=== PATIENT | female | born 1995 | race Caucasian/White ===

== ENCOUNTER 2016-11-15 18:27 | Emergency (ER) | payer MEDICAID ==
--- NOTE | 2016-11-15 19:30 | EDM.PDOC ---
ED HPI GENERAL MEDICAL PROBLEM - General Chief Complaint: Flank Pain Stated Complaint: PT HAS STOMACH PAINS Time Seen by Provider: 11/15/16 19:45 Source of Information: Reports: Patient History Limitations: Reports: No Limitations - History of Present Illness INITIAL COMMENTS - FREE TEXT/NARRATIVE: HISTORY AND PHYSICAL: History of present illness: [21-year-old female presents emergency department complaining of left upper abdominal pain in left flank/low back pain patient reports normal bowel and bladder habits. Denies fevers chills sweats or shaking chills. Pain is not worse with movement. He has no vaginal discharge or bleeding. No prior history of chronic intra-abdominal pathology. Patient denies cough, chest pain, or shortness of breath.] Review of systems: As per history of present illness and below otherwise all systems reviewed and negative. Past medical history: As per history of present illness and as reviewed below otherwise noncontributory. Surgical history: As per history of present illness and as reviewed below otherwise noncontributory. Social history: No reported history of drug or alcohol abuse. Family history: As per history of present illness and as reviewed below otherwise noncontributory. Physical exam: HEENT: Atraumatic, normocephalic, pupils reactive, negative for conjunctival pallor or scleral icterus, mucous membranes moist, throat clear, neck supple, nontender, trachea midline. Lungs: Clear to auscultation, breath sounds equal bilaterally, chest nontender. Heart: S1S2, regular, negative for clicks, rubs, or JVD. Abdomen: Soft, nondistended, nontender except minimal left upper quadrant tenderness with no guarding or rebound. Negative for masses or hepatosplenomegaly. Minimal left costovertebral tenderness/lumbar soft tissue tenderness Pelvis: Stable nontender. Genitourinary: Deferred. Rectal: Deferred. Extremities: Atraumatic, negative for cords or calf pain. Neurovascular unremarkable. Neuro: Awake, alert, oriented. Cranial nerves grossly unremarkable. Cerebellum unremarkable. Motor and sensory unremarkable throughout. Exam nonfocal. Diagnostics: Laboratory workup pending [CT of the abdomen and pelvis pending] Therapeutics: [] Impression: [] Plan: [Signs and symptoms consistent with possible pyelonephritis versus intra- abdominal pathology. Less likely ureteral colic. Full workup pending. patient stable. Workup Negative patient well-appearing and stable on multiple reevaluation. No further workup or treatment indicated at this time. She and her family agree with outpatient follow-up and strict return precautions given Definitive disposition and diagnosis as appropriate pending reevaluation and review of above. Left Abdomen Pain Score (Numeric/FACES): 6 - Related Data Allergies Allergy/AdvReac Type Severity Reaction Status Date / Time trazodone Allergy Anxiety Verified 03/11/16 13:06 citalopram hydrobromide AdvReac Seizure Verified 03/11/16 13:06 [From Celexa] Home Meds: Home Meds Pnv No.122/Iron/Folic Acid [ Multi Tablet] 1 each PO DAILY 12/27/15 [ History] Gabapentin [Neurontin] 1,200 mg PO DAILY 03/11/16 [History] NIFEdipine [Procardia] 1 cap PO DAILY 03/11/16 [History] Non-Formulary Medication [NF Drug] 1 supp VAG DAILY 03/11/16 [History] Past Medical History - Past Health History Medical/Surgical History: Denies Medical/Surgical History HEENT History: Reports: Otitis Media Cardiovascular History: Reports: None Respiratory History: Reports: None Gastrointestinal History: Reports: None Genitourinary History: Reports: UTI, 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 Endocrine/Metabolic History: Reports: None Hematologic History: Reports: None Immunologic History: Reports: None Oncologic (Cancer) History: Reports: None Dermatologic History: Reports: None - Infectious Disease History Infectious Disease History: Reports: Chicken Pox - Past Surgical History Head Surgeries/Procedures: Reports: None Oncologic Surgical History: Reports: Biopsy of Breast Social & Family History - Family History Family Medical History: Noncontributory Cardiac: Reports: [place] Oncologic: Reports: Breast, Ovarian - Tobacco Use Smoking Status *Q: Current Status Unknown Second Hand Smoke Exposure: No - Alcohol Use Days Per Week of Alcohol Use: 0 - Recreational Drug Use Recreational Drug Use: Yes Drug Use in Last 12 Months: Yes Recreational Drug Type: Reports: Marijuana/Hashish Other Recreational Drug Type: uses for epilepsy Recreational Drug Use Frequency: Weekly ED ROS GENERAL - Review of Systems Review Of Systems: See Below (History of present illness) ED EXAM, GENERAL - Physical Exam Exam: See Below (History of present illness) Course - Vital Signs Last Recorded V/S: Last Vital Signs Temp 36.8 C 11/15/16 18:46 Pulse 95 11/15/16 18:46 Resp 18 11/15/16 18:46 BP 125/73 11/15/16 18:46 Pulse Ox 96 11/15/16 18:46 - Orders/Labs/Meds Orders: Active Orders 24 hr Category Date Time Status Abdomen Pelvis w wo Cont [CT] Stat Exams 11/15/16 20:48 Taken Labs: Laboratory Tests 11/15/16 11/15/16 11/15/16 Range/Units 19:45 19:45 19:45 WBC 8.51 (4.0-11.0) K/uL RBC 4.93 (4.30-5.90) M/uL Hgb 14.1 (12.0-16.0) g/dL Hct 40.9 (36.0-46.0) % MCV 83.0 (80.0-98.0) fL MCH 28.6 (27.0-32.0) pg MCHC 34.5 (31.0-37.0) g/dL RDW Std Deviation 38.8 (28.0-62.0) fl RDW Coeff of Axel 13 (11.0-15.0) % Plt Count 298 (150-400) K/uL MPV 10.10 (7.40-12.00) fL Neut % (Auto) 57.4 (48.0-80.0) % Lymph % (Auto) 29.5 (16.0-40.0) % Coleman % (Auto) 8.1 (0.0-15.0) % Eos % (Auto) 4.5 (0.0-7.0) % Baso % (Auto) 0.5 (0.0-1.5) % Neut # (Auto) 4.9 (1.4-5.7) K/uL Lymph # (Auto) 2.5 H (0.6-2.4) K/uL Coleman # (Auto) 0.7 (0.0-0.8) K/uL Eos # (Auto) 0.4 (0.0-0.7) K/uL Baso # (Auto) 0.0 (0.0-0.1) K/uL Nucleated RBC % 0.0 /100WBC Nucleated RBCs # 0 K/uL Sodium 137 (136-146) mmol/L Potassium 3.9 (3.5-5.1) mmol/L Chloride 105 (98-110) mmol/L Carbon Dioxide 21 (21-31) mmol/L BUN 10 (6.0-23.0) mg/dL Creatinine 0.8 (0.6-1.5) mg/dL Est Cr Clr Drug Dosing 92.46 mL/min Estimated GFR (MDRD) > 60.0 ml/min Glucose 90 (60-110) mg/dL Calcium 9.8 (8.8-10.8) mg/dL Total Bilirubin 0.3 (0.1-1.5) mg/dL AST 55 H (5-40) IU/L ALT 56 H (8-54) IU/L Alkaline Phosphatase 122 (40-150) Total Protein 8.7 H (6.0-8.0) g/dL Albumin 4.8 (3.5-5.0) g/dL Globulin 3.9 H (2.0-3.5) g/dL Albumin/Globulin Ratio 1.2 L (1.3-2.8) Lipase (7-80) U/L Urine Color YELLOW Urine Appearance CLEAR Urine pH 7.0 (5.0-8.0) Ur Specific Mullens 1.015 (1.001-1.035) Urine Protein NEGATIVE (NEGATIVE) mg/dL Urine Glucose (UA) NEGATIVE (NEGATIVE) mg/dL Urine Ketones NEGATIVE (NEGATIVE) mg/dL Urine Occult Blood NEGATIVE (NEGATIVE) Urine Nitrite NEGATIVE (NEGATIVE) Urine Bilirubin NEGATIVE (NEGATIVE) Urine Urobilinogen 0.2 (<2.0) EU/dL Ur Leukocyte Esterase TRACE (NEGATIVE) Urine RBC 0-2 (0-2/HPF) Urine WBC 3-5 (0-5/HPF) Ur Epithelial Cells FEW (NONE-FEW) Amorphous Sediment MODERATE (NEGATIVE) Urine Bacteria FEW (NEGATIVE) Urine HCG, Qual (NEGATIVE) 11/15/16 11/15/16 Range/Units 19:45 19:45 WBC (4.0-11.0) K/uL RBC (4.30-5.90) M/uL Hgb (12.0-16.0) g/dL Hct (36.0-46.0) % MCV (80.0-98.0) fL MCH (27.0-32.0) pg MCHC (31.0-37.0) g/dL RDW Std Deviation (28.0-62.0) fl RDW Coeff of Axel (11.0-15.0) % Plt Count (150-400) K/uL MPV (7.40-12.00) fL Neut % (Auto) (48.0-80.0) % Lymph % (Auto) (16.0-40.0) % Coleman % (Auto) (0.0-15.0) % Eos % (Auto) (0.0-7.0) % Baso % (Auto) (0.0-1.5) % Neut # (Auto) (1.4-5.7) K/uL Lymph # (Auto) (0.6-2.4) K/uL Coleman # (Auto) (0.0-0.8) K/uL Eos # (Auto) (0.0-0.7) K/uL Baso # (Auto) (0.0-0.1) K/uL Nucleated RBC % /100WBC Nucleated RBCs # K/uL Sodium (136-146) mmol/L Potassium (3.5-5.1) mmol/L Chloride (98-110) mmol/L Carbon Dioxide (21-31) mmol/L BUN (6.0-23.0) mg/dL Creatinine (0.6-1.5) mg/dL Est Cr Clr Drug Dosing mL/min Estimated GFR (MDRD) ml/min Glucose (60-110) mg/dL Calcium (8.8-10.8) mg/dL Total Bilirubin (0.1-1.5) mg/dL AST (5-40) IU/L ALT (8-54) IU/L Alkaline Phosphatase (40-150) Total Protein (6.0-8.0) g/dL Albumin (3.5-5.0) g/dL Globulin (2.0-3.5) g/dL Albumin/Globulin Ratio (1.3-2.8) Lipase 22 (7-80) U/L Urine Color Urine Appearance Urine pH (5.0-8.0) Ur Specific Mullens (1.001-1.035) Urine Protein (NEGATIVE) mg/dL Urine Glucose (UA) (NEGATIVE) mg/dL Urine Ketones (NEGATIVE) mg/dL Urine Occult Blood (NEGATIVE) Urine Nitrite (NEGATIVE) Urine Bilirubin (NEGATIVE) Urine Urobilinogen (<2.0) EU/dL Ur Leukocyte Esterase (NEGATIVE) Urine RBC (0-2/HPF) Urine WBC (0-5/HPF) Ur Epithelial Cells (NONE-FEW) Amorphous Sediment (NEGATIVE) Urine Bacteria (NEGATIVE) Urine HCG, Qual NEGATIVE (NEGATIVE) Meds: Medications Discontinued Medications Generic Name Dose Route Start Last Admin Trade Name Freq PRN Reason Stop Dose Admin Hydromorphone HCl 0.5 mg 11/15/16 22:30 11/15/16 22:35 Dilaudid IVPUSH 11/15/16 22:31 0.5 mg NOW STA Administration Sodium Chloride 1,000 mls @ 999 mls/hr 11/15/16 20:00 11/15/16 20:06 Normal Saline IV 11/15/16 21:00 999 mls/hr .BOLUS ONE Administration Iopamidol 100 ml 11/15/16 20:58 Isovue Multipack-370 (76%) IVPUSH 11/15/16 20:59 ONETIME STA Ketorolac Tromethamine 30 mg 11/15/16 20:00 11/15/16 20:06 Toradol IVPUSH 11/15/16 20:01 30 mg ONETIME ONE Administration Ondansetron HCl 4 mg 11/15/16 19:59 11/15/16 20:05 Zofran Odt PO 11/15/16 20:00 4 mg ONETIME ONE Administration Departure - Departure Time of Disposition: 23:21 Disposition: Home, Self-Care 01 Condition: Good Clinical Impression: Abdominal pain, Back pain - Discharge Information Referrals: PCP,None [Primary Care Provider] - Forms: ED Department Discharge Additional Instructions: Is not clear what the cause of your left upper abdominal pain and left back pain is today. Your CAT scan showed a 3 mm stone in your left kidney, but a stone in your kidney would not be causing pain. You have no evidence of urinary infection or evidence of passing a kidney stone which would be potentially very painful. Labs and CAT scan were otherwise unremarkable. Take 100 mg of ibuprofen every 6 hours as needed for pain and follow-up with your tomorrow. Return immediately for new severe or worsening symptoms - My Orders Last 24 Hours: My Active Orders 11/15/16 20:48 Abdomen Pelvis w wo Cont [CT] Stat - Assessment/Plan Last 24 Hours: My Active Orders 11/15/16 20:48 Abdomen Pelvis w wo Cont [CT] Stat
[2016-11-15] MEDS ORDERED: Ondansetron 4 MG Tab.DIS PO ONE (19:59)
[2016-11-15] MEDS ORDERED: Ketorolac 30 MG/ML SDV IVPUSH ONE (20:00)
[2016-11-15] MEDS ORDERED: Sodium Chloride 0.9% 1,000 ML IV ONE (20:00)
[2016-11-15 20:15] LABS: CHLORIDE,CL 105 mmol/L (98-110); SODIUM,NA 137 mmol/L (136-146)
[2016-11-15] MEDS ORDERED: Iopamidol 755 MG/ML 500 ML Multipack Bottle IVPUSH STA (20:58)
[2016-11-15] MEDS ORDERED: HYDROmorphone 2 MG/ML Syringe IVPUSH STA (22:30)
[2016-11-15 23:42] VITALS: BP 102/60
--- NOTE | 2016-11-16 10:09 | CT ---
EXAM DATE: 11/15/16 PATIENT'S AGE: 21 Patient: HUI AUGUST Facility: [place], [place] Site . Site : 1995 Study: CT Abdomen/Pelvis [id number]/14/2017 10:03:36 PM Ordering Physician: Ousmane Reich Final Report: INDICATION: Abdominal pain TECHNIQUE: CT abdomen and pelvis acquired with and without i.v. 100 mL Isovue 370. Coronal and sagittal reformats were obtained. COMPARISON: 01/07/2015. FINDINGS: Lower chest: Unremarkable. Liver: Unremarkable. Spleen: Unremarkable. Pancreas: Unremarkable. Gallbladder and bile ducts: Unremarkable. Kidneys: There is a 3 mm stone in the lower pole of the left kidney. Adrenal glands: Unremarkable. GI tract: Eventration of the midline abdominal wall is present with diastases of the rectus abdominus muscles at the level of the umbilicus. The appendix cannot be identified but there are no inflammatory changes noted in the right lower quadrant. Vascular: Unremarkable. Lymph nodes: Unremarkable. Miscellaneous: Unremarkable. No pneumoperitoneum is seen. Trace pelvic ascites is noted. Pelvic Organs: There is a 2.4 cm cyst or follicle present in the left ovary. Bones: Unremarkable for age. IMPRESSION: 1. There is a 3 mm nonobstructing stone in the lower pole of the left kidney. Dictated by Jw Self MD @ 11/15/2016 10:24:43 PM Dictated by: Jw Self MD @ 11/15/2016 22:25:02 (Electronic Signature) Report Signed by Proxy. NBA
== END 2016-11-15 23:39 | disposition home or self-care (01) ==
LOC: MW.ED 18:27
DX: R10.12 Left upper quadrant pain (principal); M54.9 Dorsalgia, unspecified; G43.909 Migraine, unspecified, not intractable, without status migrainosus; F41.9 Anxiety disorder, unspecified; F32.9 Major depressive disorder, single episode, unspecified; Z79.899 Other long term (current) drug therapy; Z88.8 Allergy status to other drugs, medicaments and biological substances; Z87.440 Personal history of urinary (tract) infections
CPT/HCPCS: 74178; 80053; 81001; 81025; 83690; 85025; 96361; 96374; 96375; 99284; A9270; J1170; J1885; J7040

== ENCOUNTER 2017-02-10 11:05 | Emergency (ER) | payer MEDICAID ==
[2017-02-10] MEDS ORDERED: Ondansetron 4 MG Tab.DIS PO ONE (11:22)
--- NOTE | 2017-02-10 11:35 | EDM.PDOC ---
ED HPI GENERAL MEDICAL PROBLEM - General Chief Complaint: Upper Extremity Injury/Pain Stated Complaint: INJURED RT SHOULDER Time Seen by Provider: 02/10/17 11:15 Source of Information: Reports: Patient History Limitations: Reports: No Limitations - History of Present Illness INITIAL COMMENTS - FREE TEXT/NARRATIVE: History of present illness: [21-year-old female coming in complaining of mechanical fall with subsequent landing on right shoulder yesterday afternoon. Patient indicates that she feels that her shoulder is dislocated and is painful to move.] Review of systems: As per history of present illness and below otherwise all systems reviewed and negative. Past medical history: As per history of present illness and as reviewed below otherwise noncontributory. Surgical history: As per history of present illness and as reviewed below otherwise noncontributory. Social history: No reported history of drug or alcohol abuse. Family history: As per history of present illness and as reviewed below otherwise noncontributory. Physical exam: HEENT: Atraumatic, normocephalic, pupils reactive, negative for conjunctival pallor or scleral icterus, mucous membranes moist, throat clear, neck supple, nontender, trachea midline. Lungs: Clear to auscultation, breath sounds equal bilaterally, chest nontender. Heart: S1S2, regular, negative for clicks, rubs, or JVD. Abdomen: Soft, nondistended, nontender. Negative for masses or hepatosplenomegaly. Negative for costovertebral tenderness. Pelvis: Stable nontender. Genitourinary: Deferred. Rectal: Deferred. Extremities: Right ex upper extremity with the significant amount of guarding with no obvious deformity at the clavicle, negative for cords or calf pain. Neurovascular unremarkable. Neuro: Awake, alert, oriented. Cranial nerves II through XII unremarkable. Cerebellum unremarkable. Motor and sensory unremarkable throughout. Exam nonfocal. Diagnostics: [X-ray of right shoulder] Therapeutics: [Zofran] Impression: [#1 contusion to the right shoulder] Plan: [[id number] NSAIDs such as ibuprofen] Definitive disposition and diagnosis as appropriate pending reevaluation and review of above. Right Shoulder Pain Score (Numeric/FACES): 5 - Related Data Allergies Allergy/AdvReac Type Severity Reaction Status Date / Time trazodone Allergy Anxiety Verified 02/10/17 11:12 citalopram hydrobromide AdvReac Seizure Verified 02/10/17 11:12 [From Celexa] Home Meds: Home Meds Pnv No.122/Iron/Folic Acid [ Multi Tablet] 1 each PO DAILY 12/27/15 [ History] Gabapentin [Neurontin] 1,200 mg PO DAILY 03/11/16 [History] Past Medical History - Past Health History Medical/Surgical History: Denies Medical/Surgical History HEENT History: Reports: Otitis Media Cardiovascular History: Reports: None Respiratory History: Reports: None Gastrointestinal History: Reports: None Genitourinary History: Reports: UTI, Recurrent [employer]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 Endocrine/Metabolic History: Reports: None Hematologic History: Reports: None Immunologic History: Reports: None Oncologic (Cancer) History: Reports: None Dermatologic History: Reports: None - Infectious Disease History Infectious Disease History: Reports: Chicken Pox - Past Surgical History Head Surgeries/Procedures: Reports: None HEENT Surgical History: Reports: None Neurological Surgical History: Reports: None Musculoskeletal Surgical History: Reports: None Oncologic Surgical History: Reports: Biopsy of Breast Social & Family History - Family History Family Medical History: Noncontributory Cardiac: Reports: [place] Oncologic: Reports: Breast, Ovarian - Tobacco Use Smoking Status *Q: Never Smoker Second Hand Smoke Exposure: No - Caffeine Use Caffeine Use: Reports: Coffee - Alcohol Use Days Per Week of Alcohol Use: 0 - Recreational Drug Use Recreational Drug Use: Yes Drug Use in Last 12 Months: Yes Recreational Drug Type: Reports: Marijuana/Hashish Other Recreational Drug Type: uses for epilepsy Recreational Drug Use Frequency: Weekly Review of Systems - Review of Systems Review Of Systems: See Below (See history of present illness) ED EXAM, GENERAL - Physical Exam Exam: See Below (CHPI) Course - Vital Signs Last Recorded V/S: Last Vital Signs Temp 37.1 C 02/10/17 11:15 Pulse 100 02/10/17 11:15 Resp 16 02/10/17 11:15 BP 131/87 02/10/17 11:15 Pulse Ox 97 02/10/17 11:15 - Orders/Labs/Meds Orders: Active Orders 24 hr Category Date Time Status Shoulder Comp Rt [CR] Stat Exams 02/10/17 11:22 Taken Meds: Medications Discontinued Medications Generic Name Dose Route Start Last Admin Trade Name Braeden PRN Reason Stop Dose Admin Ondansetron HCl 4 mg 02/10/17 11:22 02/10/17 12:00 Zofran Odt PO 02/10/17 11:23 4 mg ONETIME ONE Administration Departure - Departure Time of Disposition: 12:10 Disposition: Home, Self-Care 01 Condition: Good ( ) Clinical Impression: Right shoulder pain - Discharge Information Instructions: Shoulder Pain, [id number], How to Use a Sling, [id number] Referrals: Julio Eden DO [Primary Care Provider] - Forms: ED Department Discharge Additional Instructions: The following information is given to patients seen in the emergency department who are being discharged to home. This information is to outline your options for follow-up care. We provide all patients seen in our emergency department with a follow-up referral. The need for follow-up, as well as the timing and circumstances, are variable depending upon the specifics of your emergency department visit. If you don't have a primary care physician on staff, we will provide you with a referral. We always advise you to contact your personal physician following an emergency department visit to inform them of the circumstance of the visit and for follow-up with them and/or the need for any referrals to a consulting specialist. The emergency department will also refer you to a specialist when appropriate. This referral assures that you have the opportunity for follow-up care with a specialist. All of these measure are taken in an effort to provide you with optimal care, which includes your follow-up. Under all circumstances we always encourage you to contact your private physician who remains a resource for coordinating your care. When calling for follow-up care, please make the office aware that this follow-up is from your recent emergency room visit. If for any reason you are refused follow-up, please contact the [facility] Emergency Department at and asked to speak to the emergency department charge nurse. Take ibuprofen 800 mg every 8 hours as needed for pain You may alternate ice and heat for no more than 20 minutes at a time Follow-up with your PCP 1-2 days Return to ED as needed as discussed
[2017-02-10 12:35] VITALS: BP 111/70
--- NOTE | 2017-02-12 13:36 | CR ---
EXAM DATE: 02/10/17 PATIENT'S AGE: 21 Patient: HUI AUGUST Facility: [place], [place] Site . Site : 1995 Study: XRay Shoulder Right [id number]/9/2017 11:45:15 AM Ordering Physician: Doctor Alamo Final Report: INDICATION: pain TECHNIQUE: Right shoulder 3 views COMPARISON: None FINDINGS: Bones: Alignment is normal. No fractures or bone lesions. Joint spaces: Unremarkable. Soft tissues: Unremarkable. IMPRESSION: Unremarkable right shoulder. Dictated by: Ren Faria MD @ 02/10/2017 12:04:46 (Electronic Signature) Report Signed by Proxy. NBA
== END 2017-02-10 12:30 | disposition home or self-care (01) ==
LOC: MW.ED 11:05
DX: S40.011A Contusion of right shoulder, initial encounter (principal); Z88.8 Allergy status to other drugs, medicaments and biological substances; Z87.440 Personal history of urinary (tract) infections; W19.XXXA Unspecified fall, initial encounter
CPT/HCPCS: 73030; 99283; A9270

== ENCOUNTER 2017-03-23 23:15 | Emergency (ER) | payer MEDICAID ==
[2017-03-23] MEDS ORDERED: Ondansetron 4 MG/2 ML SDV IVPUSH ONE (23:35)
[2017-03-23] MEDS ORDERED: Sodium Chloride 0.9% 1,000 ML IV ONE (23:35)
[2017-03-23] MEDS ORDERED: Ketorolac 30 MG/ML SDV IVPUSH ONE (23:35)
--- NOTE | 2017-03-23 23:37 | EDM.PDOC ---
ED HPI GENERAL MEDICAL PROBLEM - General Chief Complaint: Headache Stated Complaint: SEIZURE Time Seen by Provider: 03/23/17 23:36 Source of Information: Reports: Patient - History of Present Illness INITIAL COMMENTS - FREE TEXT/NARRATIVE: HISTORY AND PHYSICAL: History of present illness: [Patient with seizure disorder presents with seizure she is on gabapentin for this generally controlled she has not had a seizure in quite some time per patient. Post seizure she is alert however complains of headache 7 out of 10 left unilateral some nausea light sensitivity she does have history of migraine no fever vomiting chills sweats no chest pain shortness of breath dizziness or palpitation ] Review of systems: As per history of present illness and below otherwise all systems reviewed and negative. Past medical history: As per history of present illness and as reviewed below otherwise noncontributory. Surgical history: As per history of present illness and as reviewed below otherwise noncontributory. Social history: No reported history of drug or alcohol abuse. Family history: As per history of present illness and as reviewed below otherwise noncontributory. Physical exam: HEENT: Atraumatic, normocephalic, pupils reactive, negative for conjunctival pallor or scleral icterus, mucous membranes moist, throat clear, neck supple, nontender, trachea midline. Lungs: Clear to auscultation, breath sounds equal bilaterally, chest nontender. Heart: S1S2, regular, negative for clicks, rubs, or JVD. Abdomen: Soft, nondistended, nontender. Negative for masses or hepatosplenomegaly. Negative for costovertebral tenderness. Pelvis: Stable nontender. Genitourinary: Deferred. Rectal: Deferred. Extremities: Atraumatic, negative for cords or calf pain. Neurovascular unremarkable. Neuro: Awake, alert, oriented. Cranial nerves II through XII unremarkable. Cerebellum unremarkable. Motor and sensory unremarkable throughout. Exam nonfocal. Diagnostics: [Lab as below CT of head on file from one year prior ] Therapeutics: [1 L normal saline bolus Zofran 8 mg IV Toradol 30 mg IV ativan 1 mg iv ] Impression: [Headache-reolved Seizure disorder] Definitive disposition and diagnosis as appropriate pending reevaluation and review of above. Headache Pain Score (Numeric/FACES): 8 - Related Data Allergies Allergy/AdvReac Type Severity Reaction Status Date / Time trazodone Allergy Anxiety Verified 03/23/17 23:18 citalopram hydrobromide AdvReac Seizure Verified 03/23/17 23:18 [From Celexa] Home Meds: Home Meds Pnv No.122/Iron/Folic Acid [ Multi Tablet] 1 each PO DAILY 12/27/15 [ History] Gabapentin [Neurontin] 1,200 mg PO DAILY 03/11/16 [History] Past Medical History - Past Health History Medical/Surgical History: Denies Medical/Surgical History HEENT History: Reports: Otitis Media Cardiovascular History: Reports: None Respiratory History: Reports: None Gastrointestinal History: Reports: None Genitourinary History: Reports: UTI, 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 Endocrine/Metabolic History: Reports: None Hematologic History: Reports: None Immunologic History: Reports: None Oncologic (Cancer) History: Reports: None Dermatologic History: Reports: None - Infectious Disease History Infectious Disease History: Reports: Chicken Pox - Past Surgical History Head Surgeries/Procedures: Reports: None HEENT Surgical History: Reports: None Neurological Surgical History: Reports: None Musculoskeletal Surgical History: Reports: None Oncologic Surgical History: Reports: Biopsy of Breast Social & Family History - Family History Family Medical History: Noncontributory Cardiac: Reports: [place] Oncologic: Reports: Breast, Ovarian - Tobacco Use Smoking Status *Q: Never Smoker Second Hand Smoke Exposure: No - Caffeine Use Caffeine Use: Reports: Coffee - Alcohol Use Days Per Week of Alcohol Use: 0 - Recreational Drug Use Recreational Drug Use: Yes Drug Use in Last 12 Months: Yes Recreational Drug Type: Reports: Marijuana/Hashish Other Recreational Drug Type: uses for epilepsy Recreational Drug Use Frequency: Weekly ED ROS GENERAL - Review of Systems Review Of Systems: ROS reveals no pertinent complaints other than HPI. ED EXAM, GENERAL - Physical Exam Exam: See Below Course - Vital Signs Last Recorded V/S: Last Vital Signs Temp 36.6 C 03/23/17 23:18 Pulse 99 03/23/17 23:18 Resp 20 03/23/17 23:18 BP 101/57 L 03/24/17 01:03 Pulse Ox 97 03/23/17 23:18 - Orders/Labs/Meds Orders: Active Orders 24 hr Category Date Time Status HCG QUALITATIVE,URINE [URCHEM] Stat Lab 03/23/17 23:35 Uncollected UA W/MICROSCOPIC [URIN] Stat Lab 03/23/17 23:35 Uncollected Labs: Laboratory Tests 03/23/17 03/23/17 Range/Units 23:42 23:42 WBC 6.05 (4.0-11.0) K/uL RBC 4.48 (4.30-5.90) M/uL Hgb 12.8 (12.0-16.0) g/dL Hct 36.8 (36.0-46.0) % MCV 82.1 (80.0-98.0) fL MCH 28.6 (27.0-32.0) pg MCHC 34.8 (31.0-37.0) g/dL RDW Std Deviation 38.2 (28.0-62.0) fl RDW Coeff of Axel 13 (11.0-15.0) % Plt Count 266 (150-400) K/uL MPV 10.80 (7.40-12.00) fL Neut % (Auto) 50.2 (48.0-80.0) % Lymph % (Auto) 33.7 (16.0-40.0) % [place] % (Auto) 11.1 (0.0-15.0) % Eos % (Auto) 4.5 (0.0-7.0) % Baso % (Auto) 0.5 (0.0-1.5) % Neut # (Auto) 3.0 (1.4-5.7) K/uL Lymph # (Auto) 2.0 (0.6-2.4) K/uL [place] # (Auto) 0.7 (0.0-0.8) K/uL Eos # (Auto) 0.3 (0.0-0.7) K/uL Baso # (Auto) 0.0 (0.0-0.1) K/uL Nucleated RBC % 0.0 /100WBC Nucleated RBCs # 0 K/uL Sodium 141 (136-146) mmol/L Potassium 3.3 L (3.5-5.1) mmol/L Chloride 109 (98-110) mmol/L Carbon Dioxide 21 (21-31) mmol/L BUN 8 (6.0-23.0) mg/dL Creatinine 0.8 (0.6-1.5) mg/dL Est Cr Clr Drug Dosing TNP Estimated GFR (MDRD) > 60.0 ml/min Glucose 97 (60-110) mg/dL Calcium 9.6 (8.8-10.8) mg/dL Total Bilirubin 0.4 (0.1-1.5) mg/dL AST 18 (5-40) IU/L ALT 13 (8-54) IU/L Alkaline Phosphatase 91 (40-150) Total Protein 8.0 (6.0-8.0) g/dL Albumin 4.3 (3.5-5.0) g/dL Globulin 3.7 H (2.0-3.5) g/dL Albumin/Globulin Ratio 1.2 L (1.3-2.8) Meds: Medications Discontinued Medications Generic Name Dose Route Start Last Admin Trade Name Freq PRN Reason Stop Dose Admin Sodium Chloride 1,000 mls @ 999 mls/hr 03/23/17 23:35 03/23/17 23:56 Normal Saline IV 03/24/17 00:35 999 mls/hr STAT ONE Administration Ketorolac Tromethamine 30 mg 03/23/17 23:35 03/23/17 23:55 Toradol IVPUSH 03/23/17 23:36 30 mg ONETIME ONE Administration Lorazepam 1 mg 03/23/17 23:59 03/24/17 00:13 Ativan IVPUSH 03/24/17 00:00 1 mg ONETIME ONE Administration Ondansetron HCl 8 mg 03/23/17 23:35 03/23/17 23:56 Zofran IVPUSH 03/23/17 23:36 8 mg ONETIME ONE Administration Potassium Chloride 20 meq 03/24/17 00:56 Klor-Con M20 PO 03/24/17 00:57 ONETIME ONE Departure - Departure Time of Disposition: 01:04 Disposition: Home, Self-Care 01 Condition: Good Clinical Impression: Seizure disorder Headache Qualifiers: Headache chronicity pattern: acute headache Intractability: not intractable - Discharge Information Referrals: PCP,None [Primary Care Provider] - Forms: ED Department Discharge Additional Instructions: Continue medication as prescribed Return if symptoms persist or worsen Follow-up with primary care in 2 weeks sooner as needed The following information is given to patients seen in the emergency department who are being discharged to home. This information is to outline your options for follow-up care. We provide all patients seen in our emergency department with a follow-up referral. The need for follow-up, as well as the timing and circumstances, are variable depending upon the specifics of your emergency department visit. If you don't have a primary care physician on staff, we will provide you with a referral. We always advise you to contact your personal physician following an emergency department visit to inform them of the circumstance of the visit and for follow-up with them and/or the need for any referrals to a consulting specialist. The emergency department will also refer you to a specialist when appropriate. This referral assures that you have the opportunity for follow-up care with a specialist. All of these measure are taken in an effort to provide you with optimal care, which includes your follow-up. Under all circumstances we always encourage you to contact your private physician who remains a resource for coordinating your care. When calling for follow-up care, please make the office aware that this follow-up is from your recent emergency room visit. If for any reason you are refused follow-up, please contact the [facility] emergency department at and asked to speak to the emergency department charge nurse. - My Orders Last 24 Hours: My Active Orders 03/23/17 23:35 HCG QUALITATIVE,URINE [URCHEM] Stat UA W/MICROSCOPIC [URIN] Stat - Assessment/Plan Last 24 Hours: My Active Orders 03/23/17 23:35 HCG QUALITATIVE,URINE [URCHEM] Stat UA W/MICROSCOPIC [URIN] Stat
[2017-03-23] MEDS ORDERED: LORazepam 2 MG/ML MDV IVPUSH ONE (23:59)
[2017-03-24 00:35] LABS: CHLORIDE,CL 109 mmol/L (98-110); SODIUM,NA 141 mmol/L (136-146)
[2017-03-24] MEDS ORDERED: Potassium Chloride 20 MEQ Tab.ER PO ONE (00:56)
[2017-03-24 01:12] VITALS: BP 105/60
== END 2017-03-24 01:24 | disposition home or self-care (01) ==
LOC: MW.ED 23:15
DX: G40.909 Epilepsy, unspecified, not intractable, without status epilepticus (principal); R51 Headache; Z79.899 Other long term (current) drug therapy; Z88.8 Allergy status to other drugs, medicaments and biological substances; Z88.1 Allergy status to other antibiotic agents
CPT/HCPCS: 36415; 80053; 85025; 96361; 96374; 96375; 99284; A9270; J1885; J2060; J2405; J7040

== ENCOUNTER 2017-07-14 09:25 | Emergency (ER) | payer MEDICAID ==
[2017-07-14] MEDS ORDERED: LORazepam 0.5 MG Tab PO ONE (09:42)
--- NOTE | 2017-07-14 09:47 | EDM.PDOCBH ---
ED HPI GENERAL MEDICAL PROBLEM - General Chief Complaint: Behavioral/Psych Stated Complaint: AMB Time Seen by Provider: 07/14/17 09:33 Source of Information: Reports: Patient History Limitations: Reports: No Limitations - History of Present Illness INITIAL COMMENTS - FREE TEXT/NARRATIVE: History of present illness: []Patient arrives by ambulance having an anxiety attack, patient also suffers from chronic depression. Patient has had a very stressful week she has a 3-year- old and 1-year-old twins one having a arachnoid cyst and was treated in [place] this past week. She was not given any information about his treatment or prognosis and is very confused and scared. Patient also was engaged and her fianc broke off the engagement this past week. Patient denies being suicidal with an active plan, however she admits to having suicidal thoughts since she was 12 that come and go. Patient does not want to she wants to live for and indications but just feels very anxious and would like treatment. She has been treated in the past with Klonopin that worked but has been taken off of it. She has been to [facility] psychiatric service twice and states that they did not help her. He is followed by [facility] and has tried many antidepressants but all make her more suicidal. I did speak with Chacha and who is the pharmaceutical worker and she didn't relay to me that in the past 2 weeks He has vocalized the possibility of harming the babies or herself. Review of systems: As per history of present illness and below otherwise all systems reviewed and negative. Past medical history: As per history of present illness and as reviewed below otherwise noncontributory. Surgical history: As per history of present illness and as reviewed below otherwise noncontributory. Social history: No reported history of drug or alcohol abuse. Family history: As per history of present illness and as reviewed below otherwise noncontributory. Physical exam: General: Well developed, well nourished in NAD HEENT: Atraumatic, normocephalic, pupils reactive, negative for conjunctival pallor or scleral icterus, mucous membranes moist, throat clear, neck supple, nontender, trachea midline. Lungs: Clear to auscultation, breath sounds equal bilaterally, chest nontender. Heart: S1S2, regular, negative for clicks, rubs, or JVD. Abdomen: Soft, nondistended, nontender. Negative for masses or hepatosplenomegaly. Negative for costovertebral tenderness. Pelvis: Stable nontender. Genitourinary: Deferred. Rectal: Deferred. Extremities: Atraumatic, negative for cords or calf pain. Neurovascular unremarkable. Neuro: Awake, alert, oriented. Cranial nerves II through XII unremarkable. Cerebellum unremarkable. Motor and sensory unremarkable throughout. Exam nonfocal. Diagnostics: []Mental health screening labs done all normal Therapeutics: [] Impression: []Anxiety, depression with suicidal and homicidal ideation Plan: []Dr. Douglas Danielson [facility] psychiatric unit is called and accepts patient for transfer. Definitive disposition and diagnosis as appropriate pending reevaluation and review of above. chest Pain Score (Numeric/FACES): 4 - Related Data Allergies Allergy/AdvReac Type Severity Reaction Status Date / Time trazodone Allergy Anxiety Verified 07/14/17 09:28 citalopram hydrobromide AdvReac Seizure Verified 07/14/17 09:28 [From Celexa] Home Meds: Home Meds Gabapentin [Neurontin] 600 mg PO DAILY 03/11/16 [History] Past Medical History - Past Health History Medical/Surgical History: Denies Medical/Surgical History HEENT History: Reports: Otitis Media Cardiovascular History: Reports: None Respiratory History: Reports: None Gastrointestinal History: Reports: None Genitourinary History: Reports: UTI, 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 Endocrine/Metabolic History: Reports: None Hematologic History: Reports: None Immunologic History: Reports: None Oncologic (Cancer) History: Reports: None Dermatologic History: Reports: None - Infectious Disease History Infectious Disease History: Reports: Chicken Pox - Past Surgical History Head Surgeries/Procedures: Reports: None HEENT Surgical History: Reports: None Neurological Surgical History: Reports: None Musculoskeletal Surgical History: Reports: None Oncologic Surgical History: Reports: Biopsy of Breast Social & Family History - Family History Family Medical History: Noncontributory Cardiac: Reports: [place] Oncologic: Reports: Breast, Ovarian - Tobacco Use Smoking Status *Q: Never Smoker Second Hand Smoke Exposure: No - Caffeine Use Caffeine Use: Reports: Coffee - Alcohol Use Days Per Week of Alcohol Use: 0 - Recreational Drug Use Recreational Drug Use: Yes Drug Use in Last 12 Months: Yes Recreational Drug Type: Reports: Marijuana/Hashish Other Recreational Drug Type: uses for epilepsy Recreational Drug Use Frequency: Weekly ED ROS GENERAL - Review of Systems Review Of Systems: See Below (See history of present illness) ED EXAM, BEHAVIORAL HEALTH - Physical Exam Exam: See Below (See history of present illness) COURSE, BEHAVIORAL HEALTH COMP - Course Vital Signs: Last Vital Signs Temp 98.4 F 07/14/17 09:27 Pulse 104 H 07/14/17 09:27 Resp 18 07/14/17 09:27 BP 127/81 07/14/17 09:27 Pulse Ox 98 07/14/17 09:27 Orders, Labs, Meds: Active Orders 24 hr Category Date Time Status EKG Documentation Completion [RC] STAT Care 07/14/17 09:51 Active FREE T3 [REF] Stat Lab 07/14/17 09:57 Received Laboratory Tests 07/14/17 07/14/17 07/14/17 Range/Units 09:57 09:57 12:12 WBC 6.58 (4.0-11.0) K/uL RBC 4.39 (4.30-5.90) M/uL Hgb 12.5 (12.0-16.0) g/dL Hct 35.9 L (36.0-46.0) % MCV 81.8 (80.0-98.0) fL MCH 28.5 (27.0-32.0) pg MCHC 34.8 (31.0-37.0) g/dL RDW Std Deviation 39.7 (28.0-62.0) fl RDW Coeff of Axel 13 (11.0-15.0) % Plt Count 252 (150-400) K/uL MPV 11.40 (7.40-12.00) fL Neut % (Auto) 75.8 (48.0-80.0) % Lymph % (Auto) 14.6 L (16.0-40.0) % [place] % (Auto) 7.6 (0.0-15.0) % Eos % (Auto) 1.5 (0.0-7.0) % Baso % (Auto) 0.5 (0.0-1.5) % Neut # (Auto) 5.0 (1.4-5.7) K/uL Lymph # (Auto) 1.0 (0.6-2.4) K/uL [place] # (Auto) 0.5 (0.0-0.8) K/uL Eos # (Auto) 0.1 (0.0-0.7) K/uL Baso # (Auto) 0.0 (0.0-0.1) K/uL Nucleated RBC % 0.0 /100WBC Nucleated RBCs # 0 K/uL Sodium 140 (136-146) mmol/L Potassium 3.3 L (3.5-5.1) mmol/L Chloride 107 (98-110) mmol/L Carbon Dioxide 24 (21-31) mmol/L BUN 7 (6.0-23.0) mg/dL Creatinine 0.7 (0.6-1.5) mg/dL Est Cr Clr Drug Dosing TNP Estimated GFR (MDRD) > 60.0 ml/min Glucose 102 (60-110) mg/dL Calcium 9.7 (8.8-10.8) mg/dL Magnesium 1.9 (1.5-2.3) mEq/L Total Bilirubin 0.5 (0.1-1.5) mg/dL AST 18 (5-40) IU/L ALT 15 (8-54) IU/L Alkaline Phosphatase 78 (40-150) Total Protein 7.9 (6.0-8.0) g/dL Albumin 4.6 (3.5-5.0) g/dL Globulin 3.3 (2.0-3.5) g/dL Albumin/Globulin Ratio 1.4 (1.3-2.8) TSH 3rd Generation 0.65 (0.47-5.0) uIU/mL Urine Color Urine Appearance Urine pH (5.0-8.0) Ur Specific [place] (1.001-1.035) Urine Protein (NEGATIVE) mg/dL Urine Glucose (UA) (NEGATIVE) mg/dL Urine Ketones (NEGATIVE) mg/dL Urine Occult Blood (NEGATIVE) Urine Nitrite (NEGATIVE) Urine Bilirubin (NEGATIVE) Urine Ictotest Urine Urobilinogen (<2.0) EU/dL Ur Leukocyte Esterase (NEGATIVE) Urine RBC (0-2/HPF) Urine WBC (0-5/HPF) Ur Epithelial Cells (NONE-FEW) Urine Bacteria (NEGATIVE) Urine Mucus (NONE-MOD) Urine HCG, Qual NEGATIVE (NEGATIVE) Salicylates < 5.0 (0-20) mg/dL Urine Opiates Screen (NEGATIVE) Ur Oxycodone Screen (NEGATIVE) Urine Methadone Screen (NEGATIVE) Acetaminophen < 3.0 ug/mL Ur Barbiturates Screen (NEGATIVE) Ur Phencyclidine Scrn (NEGATIVE) Ur Amphetamine Screen (NEGATIVE) U Methamphetamines Scrn (NEGATIVE) U Benzodiazepines Scrn (NEGATIVE) U Cocaine Metab Screen (NEGATIVE) U Marijuana (THC) Screen (NEGATIVE) Ethyl Alcohol < 10.0 mg/dL 07/14/17 07/14/17 Range/Units 12:12 12:12 WBC (4.0-11.0) K/uL RBC (4.30-5.90) M/uL Hgb (12.0-16.0) g/dL Hct (36.0-46.0) % MCV (80.0-98.0) fL MCH (27.0-32.0) pg MCHC (31.0-37.0) g/dL RDW Std Deviation (28.0-62.0) fl RDW Coeff of Axel (11.0-15.0) % Plt Count (150-400) K/uL MPV (7.40-12.00) fL Neut % (Auto) (48.0-80.0) % Lymph % (Auto) (16.0-40.0) % [place] % (Auto) (0.0-15.0) % Eos % (Auto) (0.0-7.0) % Baso % (Auto) (0.0-1.5) % Neut # (Auto) (1.4-5.7) K/uL Lymph # (Auto) (0.6-2.4) K/uL [place] # (Auto) (0.0-0.8) K/uL Eos # (Auto) (0.0-0.7) K/uL Baso # (Auto) (0.0-0.1) K/uL Nucleated RBC % /100WBC Nucleated RBCs # K/uL Sodium (136-146) mmol/L Potassium (3.5-5.1) mmol/L Chloride (98-110) mmol/L Carbon Dioxide (21-31) mmol/L BUN (6.0-23.0) mg/dL Creatinine (0.6-1.5) mg/dL Est Cr Clr Drug Dosing Estimated GFR (MDRD) ml/min Glucose (60-110) mg/dL Calcium (8.8-10.8) mg/dL Magnesium (1.5-2.3) mEq/L Total Bilirubin (0.1-1.5) mg/dL AST (5-40) IU/L ALT (8-54) IU/L Alkaline Phosphatase (40-150) Total Protein (6.0-8.0) g/dL Albumin (3.5-5.0) g/dL Globulin (2.0-3.5) g/dL Albumin/Globulin Ratio (1.3-2.8) TSH 3rd Generation (0.47-5.0) uIU/mL Urine Color YELLOW Urine Appearance CLEAR Urine pH 7.0 (5.0-8.0) Ur Specific [place] 1.020 (1.001-1.035) Urine Protein TRACE (NEGATIVE) mg/dL Urine Glucose (UA) NEGATIVE (NEGATIVE) mg/dL Urine Ketones 15 H (NEGATIVE) mg/dL Urine Occult Blood LARGE H (NEGATIVE) Urine Nitrite NEGATIVE (NEGATIVE) Urine Bilirubin SMALL H (NEGATIVE) Urine Ictotest NEGATIVE Urine Urobilinogen 0.2 (<2.0) EU/dL Ur Leukocyte Esterase NEGATIVE (NEGATIVE) Urine RBC 35-40 (0-2/HPF) Urine WBC 3-6 (0-5/HPF) Ur Epithelial Cells MODERATE (NONE-FEW) Urine Bacteria FEW (NEGATIVE) Urine Mucus MANY (NONE-MOD) Urine HCG, Qual (NEGATIVE) Salicylates (0-20) mg/dL Urine Opiates Screen NEGATIVE (NEGATIVE) Ur Oxycodone Screen NEGATIVE (NEGATIVE) Urine Methadone Screen NEGATIVE (NEGATIVE) Acetaminophen ug/mL Ur Barbiturates Screen NEGATIVE (NEGATIVE) Ur Phencyclidine Scrn NEGATIVE (NEGATIVE) Ur Amphetamine Screen NEGATIVE (NEGATIVE) U Methamphetamines Scrn NEGATIVE (NEGATIVE) U Benzodiazepines Scrn NEGATIVE (NEGATIVE) U Cocaine Metab Screen NEGATIVE (NEGATIVE) U Marijuana (THC) Screen NEGATIVE (NEGATIVE) Ethyl Alcohol mg/dL Medications Discontinued Medications Generic Name Dose Route Start Last Admin Trade Name [place] PRN Reason Stop Dose Admin Lorazepam 0.5 mg 07/14/17 09:42 07/14/17 09:50 Ativan PO 07/14/17 09:43 0.5 mg ONETIME ONE Administration Departure - Departure Time of Disposition: 15:19 Disposition: DC/Tfer to Psych Hosp/Unit 65 Condition: Good Clinical Impression: Suicidal ideations, Homicidal ideations, Anxiety and depression - Discharge Information Forms: ED Department Discharge - My Orders Last 24 Hours: My Active Orders 07/14/17 09:51 EKG Documentation Completion [RC] STAT 07/14/17 09:57 FREE T3 [REF] Stat - Assessment/Plan Last 24 Hours: My Active Orders 07/14/17 09:51 EKG Documentation Completion [RC] STAT 07/14/17 09:57 FREE T3 [REF] Stat
[2017-07-14 10:47] LABS: ACETAMINOPHEN < 3.0 ug/mL; CHLORIDE,CL 107 mmol/L (98-110); SODIUM,NA 140 mmol/L (136-146)
[2017-07-14 15:47] VITALS: BP 103/76
== END 2017-07-14 13:02 ==
LOC: MW.ED 09:25
DX: R45.851 Suicidal ideations (principal); R45.850 Homicidal ideations; F41.8 Other specified anxiety disorders; Z88.8 Allergy status to other drugs, medicaments and biological substances; Z79.899 Other long term (current) drug therapy
CPT/HCPCS: 80053; 80305; 81001; 81025; 83735; 84443; 84481; 85025; 93005; 99285; A9270; G0480; 36415; 99284

== ENCOUNTER 2018-06-27 16:35 | Emergency (ER) | payer MEDICAID ==
[2018-06-27] MEDS ORDERED: Sodium Chloride 0.9% 1,000 ML IV ONE (16:45)
--- NOTE | 2018-06-27 16:46 | EDM.PDOC ---
ED HPI GENERAL MEDICAL PROBLEM - General Chief Complaint: Syncope Stated Complaint: FALL/SEIZURE Time Seen by Provider: 06/27/18 16:44 Source of Information: Reports: Patient History Limitations: Reports: No Limitations - History of Present Illness INITIAL COMMENTS - FREE TEXT/NARRATIVE: HISTORY AND PHYSICAL: History of present illness: Patient is a 23-year-old female who presents to the emergency room today with complaints of syncope. Patient states that she has had the syncopal events over the past year and was seeing Dr. Estrella at the clinic. She states there as been a change in her insurance and she has not seen her in several months. Today she had a syncopal event and had fallen. She believes these are absent seizures. She has no urinary or fecal incontinence during these episodes. She currently does have a right-sided temporal headache, these are "normal" and occur intermittently over the past year. Review of systems: As per history of present illness and below otherwise all systems reviewed and negative. Past medical history: As per history of present illness and as reviewed below otherwise noncontributory. Surgical history: As per history of present illness and as reviewed below otherwise noncontributory. Social history: See social history for further information Family history: As per history of present illness and as reviewed below otherwise noncontributory. Physical exam: General: Well-developed and well-nourished 23-year-old female. Alert and oriented. Nontoxic appearing and in no acute distress. HEENT: Atraumatic, normocephalic, pupils equal and reactive bilaterally, negative for conjunctival pallor or scleral icterus, mucous membranes moist, TMs normal bilaterally, throat clear, neck supple, nontender, trachea midline. No drooling or trismus noted. No meningeal signs. No hot potato voice noted. Lungs: Clear to auscultation, breath sounds equal bilaterally, chest nontender. Heart: S1S2, regular rate and rhythm without overt murmur Abdomen: Soft, nondistended, nontender. Negative for masses or hepatosplenomegaly. Negative for costovertebral tenderness. Pelvis: Stable nontender. Genitourinary: Deferred. Rectal: Deferred. Skin: Intact, warm, dry. No lesions or rashes noted. Extremities: Atraumatic, negative for cords or calf pain. Neurovascular unremarkable. Neuro: Awake, alert, oriented. Cranial nerves II through XII unremarkable. Cerebellum unremarkable. Motor and sensory unremarkable throughout. Exam nonfocal. Notes: We discussed doing a head CT, including risks versus benefits, declines at this time. She has had multiple head CTs for the past several months due to syncopal events and her headache complaints. States that this headache is normal for her as she has been having these on and off. She is agreeable to lab work. Lab work is unremarkable. Patient's vital signs remained stable. Patient states that she feels improved. We discussed disposition including admission which she declines. She does have a ride to home with and states she will follow-up with Dr. Calderon. Denies any questions or concerns at this time. Diagnostics: CBC, CMP, UA, HCGU Therapeutics: IV fluids, Ativan Prescription: None Impression: Syncope Headache, acute on chronic Plan: 1. Please abstain from driving until you have definitive cause of your syncopal/ possible seizure activity. Please follow up with your Neurologist as you already have planned for further evaluation and management. 2. Tylenol and/or ibuprofen as needed for pain management. Drink plenty of fluids. Make sure you are changing positions slowly from lying to sitting to standing. 3. Follow-up with your primary care provider or neurologist in the next 1-2 days. Return to the ED as needed and as discussed. Definitive disposition and diagnosis as appropriate pending reevaluation and review of above. Headache Pain Score (Numeric/FACES): 4 - Related Data Allergies Allergy/AdvReac Type Severity Reaction Status Date / Time morphine Allergy Rash Verified 06/27/18 16:40 citalopram hydrobromide AdvReac Seizure Verified 06/27/18 16:40 [From Celexa] trazodone AdvReac Anxiety Verified 06/27/18 16:40 Home Meds: Home Meds Gabapentin [Neurontin] 800 mg PO Q8HR 05/28/18 [History] Past Medical History - Past Health History Medical/Surgical History: Denies Medical/Surgical History HEENT History: Reports: Impaired Vision Cardiovascular History: Reports: None Respiratory History: Reports: None Gastrointestinal History: Reports: GERD Genitourinary History: Reports: None JUNIOR ARCHITECT History: Reports: , Spontaneous Other JUNIOR ARCHITECT History: left breast biopsy, placenta previa Musculoskeletal History: Reports: Fracture Neurological History: Reports: Migraines, Seizure Other Neuro History: Epilepsy Psychiatric History: Reports: Anxiety, Depression, PTSD, Other (See Below) Other Psychiatric History: borderline personality disorder Endocrine/Metabolic History: Reports: None Hematologic History: Reports: None Immunologic History: Reports: None Oncologic (Cancer) History: Reports: None Dermatologic History: Reports: None - Infectious Disease History Infectious Disease History: Reports: Chicken Pox - Past Surgical History Head Surgeries/Procedures: Reports: None HEENT Surgical History: Reports: None Cardiovascular Surgical History: Reports: None Respiratory Surgical History: Reports: None GI Surgical History: Reports: None Female Surgical History: Reports: Section Endocrine Surgical History: Reports: None Neurological Surgical History: Reports: None Musculoskeletal Surgical History: Reports: None Oncologic Surgical History: Reports: None Dermatological Surgical History: Reports: None Social & Family History - Family History Family Medical History: Noncontributory Cardiac: Reports: [place], Other (See Below) Other Cardiac Family History: heart disease OBGYN: Reports: Neurological: Reports: MS Psychiatric: Reports: Anxiety, Depression Oncologic: Reports: Breast, Ovarian, Thyroid, Uterine - Tobacco Use Smoking Status *Q: Never Smoker - Caffeine Use Caffeine Use: Reports: Coffee, Soda - Recreational Drug Use Recreational Drug Use: No ED ROS GENERAL - Review of Systems Review Of Systems: ROS reveals no pertinent complaints other than HPI. - Physical Exam Exam: See Below (See dictation) Course - Vital Signs Last Recorded V/S: Last Vital Signs Temp 96.8 F 06/27/18 16:37 Pulse 65 06/27/18 16:37 Resp 16 06/27/18 16:37 BP 111/65 06/27/18 16:37 Pulse Ox 98 06/27/18 16:37 - Orders/Labs/Meds Orders: Active Orders 24 hr Category Date Time Status EKG Documentation Completion [RC] STAT Care 06/27/18 16:45 Active COMPREHENSIVE METABOLIC PN,CMP [CHEM] Stat Lab 06/27/18 18:12 Results CULTURE URINE [RM] Stat Lab 06/27/18 18:04 Received Labs: Laboratory Tests 06/27/18 06/27/18 06/27/18 Range/Units 18:04 18:04 18:12 WBC 7.26 (4.0-11.0) K/uL RBC 4.39 (4.30-5.90) M/uL Hgb 11.5 L (12.0-16.0) g/dL Hct 35.4 L (36.0-46.0) % MCV 80.6 (80.0-98.0) fL MCH 26.2 L (27.0-32.0) pg MCHC 32.5 (31.0-37.0) g/dL RDW Std Deviation 53.0 (28.0-62.0) fl RDW Coeff of Axel 18 H (11.0-15.0) % Plt Count 262 (150-400) K/uL MPV 10.00 (7.40-12.00) fL Neut % (Auto) 54.4 (48.0-80.0) % Lymph % (Auto) 33.9 (16.0-40.0) % Lassen % (Auto) 8.0 (0.0-15.0) % Eos % (Auto) 3.3 (0.0-7.0) % Baso % (Auto) 0.4 (0.0-1.5) % Neut # (Auto) 4.0 (1.4-5.7) K/uL Lymph # (Auto) 2.5 H (0.6-2.4) K/uL Lassen # (Auto) 0.6 (0.0-0.8) K/uL Eos # (Auto) 0.2 (0.0-0.7) K/uL Baso # (Auto) 0.0 (0.0-0.1) K/uL Nucleated RBC % 0.0 /100WBC Nucleated RBCs # 0 K/uL Sodium (136-145) mmol/L Potassium (3.5-5.1) mmol/L Chloride (98-107) mmol/L Carbon Dioxide (21.0-32.0) mmol/L BUN (7.0-18.0) mg/dL Creatinine (0.6-1.0) mg/dL Est Cr Clr Drug Dosing mL/min Estimated GFR (MDRD) ml/min Glucose (74-106) mg/dL Calcium (8.5-10.1) mg/dL Total Bilirubin (0.2-1.0) mg/dL AST (15-37) IU/L ALT (14-63) IU/L Alkaline Phosphatase (46-116) U/L Albumin (3.4-5.0) g/dL Urine Color YELLOW Urine Appearance CLEAR Urine pH 6.5 (5.0-8.0) Ur Specific Gy[place] 1.025 (1.001-1.035) Urine Protein NEGATIVE (NEGATIVE) mg/dL Urine Glucose (UA) NEGATIVE (NEGATIVE) mg/dL Urine Ketones NEGATIVE (NEGATIVE) mg/dL Urine Occult Blood NEGATIVE (NEGATIVE) Urine Nitrite NEGATIVE (NEGATIVE) Urine Bilirubin NEGATIVE (NEGATIVE) Urine Urobilinogen 0.2 (<2.0) EU/dL Ur Leukocyte Esterase SMALL H (NEGATIVE) Urine RBC 0-1 (0-2/HPF) Urine WBC 2-3 (0-5/HPF) Ur Epithelial Cells RARE (NONE-FEW) Urine Bacteria RARE (NEGATIVE) Urine HCG, Qual NEGATIVE (NEGATIVE) 06/27/18 Range/Units 18:12 WBC (4.0-11.0) K/uL RBC (4.30-5.90) M/uL Hgb (12.0-16.0) g/dL Hct (36.0-46.0) % MCV (80.0-98.0) fL MCH (27.0-32.0) pg MCHC (31.0-37.0) g/dL RDW Std Deviation (28.0-62.0) fl RDW Coeff of Axel (11.0-15.0) % Plt Count (150-400) K/uL MPV (7.40-12.00) fL Neut % (Auto) (48.0-80.0) % Lymph % (Auto) (16.0-40.0) % Lassen % (Auto) (0.0-15.0) % Eos % (Auto) (0.0-7.0) % Baso % (Auto) (0.0-1.5) % Neut # (Auto) (1.4-5.7) K/uL Lymph # (Auto) (0.6-2.4) K/uL Lassen # (Auto) (0.0-0.8) K/uL Eos # (Auto) (0.0-0.7) K/uL Baso # (Auto) (0.0-0.1) K/uL Nucleated RBC % /100WBC Nucleated RBCs # K/uL Sodium 145 (136-145) mmol/L Potassium 4.2 (3.5-5.1) mmol/L Chloride 110 H (98-107) mmol/L Carbon Dioxide 26.6 (21.0-32.0) mmol/L BUN 11 (7.0-18.0) mg/dL Creatinine 0.7 (0.6-1.0) mg/dL Est Cr Clr Drug Dosing 97.17 mL/min Estimated GFR (MDRD) > 60.0 ml/min Glucose 82 (74-106) mg/dL Calcium 8.8 (8.5-10.1) mg/dL Total Bilirubin 0.3 (0.2-1.0) mg/dL AST 13 L (15-37) IU/L ALT 20 (14-63) IU/L Alkaline Phosphatase 98 (46-116) U/L Albumin 3.6 (3.4-5.0) g/dL Urine Color Urine Appearance Urine pH (5.0-8.0) Ur Specific [place] (1.001-1.035) Urine Protein (NEGATIVE) mg/dL Urine Glucose (UA) (NEGATIVE) mg/dL Urine Ketones (NEGATIVE) mg/dL Urine Occult Blood (NEGATIVE) Urine Nitrite (NEGATIVE) Urine Bilirubin (NEGATIVE) Urine Urobilinogen (<2.0) EU/dL Ur Leukocyte Esterase (NEGATIVE) Urine RBC (0-2/HPF) Urine WBC (0-5/HPF) Ur Epithelial Cells (NONE-FEW) Urine Bacteria (NEGATIVE) Urine HCG, Qual (NEGATIVE) Meds: Medications Discontinued Medications Generic Name Dose Route Start Last Admin Trade Name Freq PRN Reason Stop Dose Admin Sodium Chloride 1,000 mls @ 999 mls/hr 06/27/18 16:45 06/27/18 16:56 Normal Saline IV 06/27/18 17:45 999 mls/hr STAT ONE Administration Lorazepam 1 mg 06/27/18 17:04 06/27/18 17:12 Ativan IVPUSH 06/27/18 17:05 1 mg ONETIME ONE Administration Departure - Departure Time of Disposition: 19:17 Disposition: Home, Self-Care 01 Clinical Impression: Syncope Qualifiers: Syncope type: unspecified Qualified Code(s): R55 - Syncope and collapse Headache Qualifiers: Headache type: unspecified Headache chronicity pattern: chronic headache Intractability: not intractable Qualified Code(s): R51 - Headache - Discharge Information Instructions: Migraine Headache, [id number], Syncope, [id number] Referrals: PCP,Unknown [Primary Care Provider] - Forms: ED Department Discharge Additional Instructions: The following information is given to patients seen in the emergency department who are being discharged to home. This information is to outline your options for follow-up care. We provide all patients seen in our emergency department with a follow-up referral. The need for follow-up, as well as the timing and circumstances, are variable depending upon the specifics of your emergency department visit. If you don't have a primary care physician on staff, we will provide you with a referral. We always advise you to contact your personal physician following an emergency department visit to inform them of the circumstance of the visit and for follow-up with them and/or the need for any referrals to a consulting specialist. The emergency department will also refer you to a specialist when appropriate. This referral assures that you have the opportunity for follow-up care with a specialist. All of these measure are taken in an effort to provide you with optimal care, which includes your follow-up. Under all circumstances we always encourage you to contact your private physician who remains a resource for coordinating your care. When calling for follow-up care, please make the office aware that this follow-up is from your recent emergency room visit. If for any reason you are refused follow-up, please contact the [facility] Emergency Department at and asked to speak to the emergency department charge nurse. [facility] [address] [place] [id number] [facility] [address] [place] [id number] 1. Please abstain from driving until you have definitive cause of your syncopal/ possible seizure activity. Please follow up with your Neurologist as you already have planned for further evaluation and management. 2. Tylenol and/or ibuprofen as needed for pain management. Drink plenty of fluids. Make sure you are changing positions slowly from lying to sitting to standing. 3. Follow-up with your primary care provider or neurologist in the next 1-2 days. Return to the ED as needed and as discussed. - My Orders Last 24 Hours: My Active Orders 06/27/18 16:45 EKG Documentation Completion [RC] STAT 06/27/18 18:04 CULTURE URINE [RM] Stat 06/27/18 18:12 COMPREHENSIVE METABOLIC PN,CMP [CHEM] Stat - Assessment/Plan Last 24 Hours: My Active Orders 06/27/18 16:45 EKG Documentation Completion [RC] STAT 06/27/18 18:04 CULTURE URINE [RM] Stat 06/27/18 18:12 COMPREHENSIVE METABOLIC PN,CMP [CHEM] Stat
[2018-06-27] MEDS ORDERED: LORazepam 2 MG/ML SDV IVPUSH ONE (17:04)
[2018-06-27 19:05] LABS: CHLORIDE,CL 110 mmol/L (98-107); SODIUM,NA 145 mmol/L (136-145)
[2018-06-27 19:32] VITALS: BP 96/58
== END 2018-06-27 19:26 | disposition home or self-care (01) ==
LOC: MW.ED 16:35
DX: R55 Syncope and collapse (principal); R51 Headache; Z88.5 Allergy status to narcotic agent; Z88.1 Allergy status to other antibiotic agents; Z88.8 Allergy status to other drugs, medicaments and biological substances
CPT/HCPCS: 36415; 80053; 81001; 81025; 85025; 87086; 93005; 96361; 96374; 99284; J2060; J7040

== ENCOUNTER 2018-12-22 13:34 | Emergency (ER) | payer MEDICAID ==
[2018-12-22] MEDS ORDERED: Sodium Chloride 0.9% 1,000 ML IV ONE ×2 (13:53→14:38)
[2018-12-22] MEDS ORDERED: Ondansetron 4 MG/2 ML SDV IVPUSH ONE (13:53)
--- NOTE | 2018-12-22 13:57 | EDM.PDOC ---
ED HPI GENERAL MEDICAL PROBLEM - General Chief Complaint: Abdominal Pain Stated Complaint: STOMACH PAIN Time Seen by Provider: 12/22/18 13:57 Source of Information: Reports: Patient - History of Present Illness INITIAL COMMENTS - FREE TEXT/NARRATIVE: HISTORY AND PHYSICAL: History of present illness: [Patient presents with right upper quadrant pain radiating to the back which began at 1:30 AM after eating a meal at [employer], she has had intermittent vague abdominal pains over the last 6 months with negative workup she has had CT and ultrasound approximately 6 months back these are on file No fever she does have nausea vomiting and loose stools today 5 out of 10 pain radiating to the back ] Review of systems: As per history of present illness and below otherwise all systems reviewed and negative. Past medical history: As per history of present illness and as reviewed below otherwise noncontributory. Surgical history: As per history of present illness and as reviewed below otherwise noncontributory. Social history: No reported history of drug or alcohol abuse. Family history: As per history of present illness and as reviewed below otherwise noncontributory. Physical exam: HEENT: Atraumatic, normocephalic, pupils reactive, negative for conjunctival pallor or scleral icterus, mucous membranes moist, throat clear, neck supple, nontender, trachea midline. Lungs: Clear to auscultation, breath sounds equal bilaterally, chest nontender. Heart: S1S2, regular, negative for clicks, rubs, or JVD. Abdomen: Soft, nondistended, nontender. Negative for masses or hepatosplenomegaly. Negative for costovertebral tenderness. Pelvis: Stable nontender. Genitourinary: Deferred. Rectal: Deferred. Extremities: Atraumatic, negative for cords or calf pain. Neurovascular unremarkable. Neuro: Awake, alert, oriented. Cranial nerves II through XII unremarkable. Cerebellum unremarkable. Motor and sensory unremarkable throughout. Exam nonfocal. Diagnostics: [CBC CMP UA lipase ] Therapeutics: normal saline Toradol Zofran Proton X Cipro Toradol Zofran Impression: Marcelo pain improved [Nausea vomiting diarrhea ] Definitive disposition and diagnosis as appropriate pending reevaluation and review of above. Abdomen Pain Score (Numeric/FACES): 6 - Related Data Allergies Allergy/AdvReac Type Severity Reaction Status Date / Time morphine Allergy Rash Verified 12/22/18 13:52 citalopram hydrobromide AdvReac Seizure Verified 12/22/18 13:52 [From Celexa] trazodone AdvReac Anxiety Verified 12/22/18 13:52 Home Meds: Home Meds Gabapentin [Neurontin] 800 mg PO Q8HR 05/28/18 [History] Past Medical History - Past Health History Medical/Surgical History: Denies Medical/Surgical History HEENT History: Reports: Impaired Vision Cardiovascular History: Reports: None Respiratory History: Reports: None Gastrointestinal History: Reports: GERD Genitourinary History: Reports: None 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: , Spontaneous Other DELIVERY AIDE History: left breast biopsy, placenta previa Musculoskeletal History: Reports: Fracture Neurological History: Reports: Migraines, Seizure Other Neuro History: Epilepsy Psychiatric History: Reports: Anxiety, Depression, PTSD, Other (See Below) Other Psychiatric History: borderline personality disorder Endocrine/Metabolic History: Reports: None Hematologic History: Reports: None Immunologic History: Reports: None Oncologic (Cancer) History: Reports: None Dermatologic History: Reports: None - Infectious Disease History Infectious Disease History: Reports: Chicken Pox - Past Surgical History Head Surgeries/Procedures: Reports: None HEENT Surgical History: Reports: None Cardiovascular Surgical History: Reports: None Respiratory Surgical History: Reports: None GI Surgical History: Reports: None Female Surgical History: Reports: Section Endocrine Surgical History: Reports: None Neurological Surgical History: Reports: None Musculoskeletal Surgical History: Reports: None Oncologic Surgical History: Reports: None Dermatological Surgical History: Reports: None Social & Family History - Family History Family Medical History: Noncontributory Cardiac: Reports: VT, Other (See Below) Other Cardiac Family History: heart disease OBGYN: Reports: Neurological: Reports: MS Psychiatric: Reports: Anxiety, Depression Oncologic: Reports: Breast, Ovarian, Thyroid, Uterine - Tobacco Use Smoking Status *Q: Never Smoker - Caffeine Use Caffeine Use: Reports: Coffee, Soda - Recreational Drug Use Recreational Drug Use: No ED ROS GENERAL - Review of Systems Review Of Systems: See Below ED EXAM, GENERAL - Physical Exam Exam: See Below Course - Vital Signs Last Recorded V/S: Last Vital Signs Temp 97.4 F 12/22/18 13:50 Pulse 91 12/22/18 15:00 Resp 20 12/22/18 15:00 BP 98/63 12/22/18 15:00 Pulse Ox 100 12/22/18 15:00 - Orders/Labs/Meds Labs: Laboratory Tests 12/22/18 12/22/18 12/22/18 Range/Units 14:06 14:06 14:06 WBC 12.71 H (4.0-11.0) K/uL RBC 4.75 (4.30-5.90) M/uL Hgb 13.6 (12.0-16.0) g/dL Hct 39.8 (36.0-46.0) % MCV 83.8 (80.0-98.0) fL MCH 28.6 (27.0-32.0) pg MCHC 34.2 (31.0-37.0) g/dL RDW Std Deviation 41.3 (28.0-62.0) fl RDW Coeff of Axel 14 (11.0-15.0) % Plt Count 245 (150-400) K/uL MPV 10.60 (7.40-12.00) fL Neut % (Auto) 90.0 H (48.0-80.0) % Lymph % (Auto) 4.2 L (16.0-40.0) % Nash % (Auto) 5.3 (0.0-15.0) % Eos % (Auto) 0.3 (0.0-7.0) % Baso % (Auto) 0.2 (0.0-1.5) % Neut # (Auto) 11.5 H (1.4-5.7) K/uL Lymph # (Auto) 0.5 L (0.6-2.4) K/uL Nash # (Auto) 0.7 (0.0-0.8) K/uL Eos # (Auto) 0.0 (0.0-0.7) K/uL Baso # (Auto) 0.0 (0.0-0.1) K/uL Nucleated RBC % 0.0 /100WBC Nucleated RBCs # 0 K/uL Sodium 141 (136-145) mmol/L Potassium 3.8 (3.5-5.1) mmol/L Chloride 104 (98-107) mmol/L Carbon Dioxide 24.9 (21.0-32.0) mmol/L BUN 15 (7.0-18.0) mg/dL Creatinine 0.8 (0.6-1.0) mg/dL Est Cr Clr Drug Dosing 79.29 mL/min Estimated GFR (MDRD) > 60.0 ml/min Glucose 89 (74-106) mg/dL Calcium 9.2 (8.5-10.1) mg/dL Total Bilirubin 0.5 (0.2-1.0) mg/dL AST 18 (15-37) IU/L ALT 23 (14-63) IU/L Alkaline Phosphatase 96 (46-116) U/L Total Protein 8.1 (6.4-8.2) g/dL Albumin 4.2 (3.4-5.0) g/dL Globulin 3.9 (2.6-4.0) g/dL Albumin/Globulin Ratio 1.1 (0.9-1.6) Lipase 83 (73-393) U/L HCG, Quant < 1.0 mIU/mL Urine Color Urine Appearance Urine pH (5.0-8.0) Ur Specific Gravelly (1.001-1.035) Urine Protein (NEGATIVE) mg/dL Urine Glucose (UA) (NEGATIVE) mg/dL Urine Ketones (NEGATIVE) mg/dL Urine Occult Blood (NEGATIVE) Urine Nitrite (NEGATIVE) Urine Bilirubin (NEGATIVE) Urine Urobilinogen (<2.0) EU/dL Ur Leukocyte Esterase (NEGATIVE) Urine HCG, Qual (NEGATIVE) 12/22/18 12/22/18 Range/Units 14:40 14:40 WBC (4.0-11.0) K/uL RBC (4.30-5.90) M/uL Hgb (12.0-16.0) g/dL Hct (36.0-46.0) % MCV (80.0-98.0) fL MCH (27.0-32.0) pg MCHC (31.0-37.0) g/dL RDW Std Deviation (28.0-62.0) fl RDW Coeff of Axel (11.0-15.0) % Plt Count (150-400) K/uL MPV (7.40-12.00) fL Neut % (Auto) (48.0-80.0) % Lymph % (Auto) (16.0-40.0) % Nash % (Auto) (0.0-15.0) % Eos % (Auto) (0.0-7.0) % Baso % (Auto) (0.0-1.5) % Neut # (Auto) (1.4-5.7) K/uL Lymph # (Auto) (0.6-2.4) K/uL Nash # (Auto) (0.0-0.8) K/uL Eos # (Auto) (0.0-0.7) K/uL Baso # (Auto) (0.0-0.1) K/uL Nucleated RBC % /100WBC Nucleated RBCs # K/uL Sodium (136-145) mmol/L Potassium (3.5-5.1) mmol/L Chloride (98-107) mmol/L Carbon Dioxide (21.0-32.0) mmol/L BUN (7.0-18.0) mg/dL Creatinine (0.6-1.0) mg/dL Est Cr Clr Drug Dosing mL/min Estimated GFR (MDRD) ml/min Glucose (74-106) mg/dL Calcium (8.5-10.1) mg/dL Total Bilirubin (0.2-1.0) mg/dL AST (15-37) IU/L ALT (14-63) IU/L Alkaline Phosphatase (46-116) U/L Total Protein (6.4-8.2) g/dL Albumin (3.4-5.0) g/dL Globulin (2.6-4.0) g/dL Albumin/Globulin Ratio (0.9-1.6) Lipase (73-393) U/L HCG, Quant mIU/mL Urine Color YELLOW Urine Appearance CLEAR Urine pH 6.5 (5.0-8.0) Ur Specific Gravelly 1.025 (1.001-1.035) Urine Protein NEGATIVE (NEGATIVE) mg/dL Urine Glucose (UA) NEGATIVE (NEGATIVE) mg/dL Urine Ketones 15 H (NEGATIVE) mg/dL Urine Occult Blood NEGATIVE (NEGATIVE) Urine Nitrite NEGATIVE (NEGATIVE) Urine Bilirubin NEGATIVE (NEGATIVE) Urine Urobilinogen 0.2 (<2.0) EU/dL Ur Leukocyte Esterase NEGATIVE (NEGATIVE) Urine HCG, Qual NEGATIVE (NEGATIVE) Meds: Medications Discontinued Medications Generic Name Dose Route Start Last Admin Trade Name Freq PRN Reason Stop Dose Admin Sodium Chloride 1,000 mls @ 999 mls/hr 12/22/18 13:53 12/22/18 14:09 Normal Saline IV 12/22/18 14:53 999 mls/hr STAT ONE Administration Sodium Chloride 1,000 mls @ 999 mls/hr 12/22/18 14:38 12/22/18 14:50 Normal Saline IV 12/22/18 15:38 999 mls/hr STAT ONE Administration Iopamidol 58 ml 12/22/18 15:27 12/22/18 15:28 Isovue Multipack-370 (76%) IVPUSH 12/22/18 15:28 58 ml ONETIME ONE Administration Ketorolac Tromethamine 30 mg 12/22/18 14:54 12/22/18 15:02 Toradol IVPUSH 12/22/18 14:55 30 mg ONETIME ONE Administration Ondansetron HCl 8 mg 12/22/18 13:53 12/22/18 14:09 Zofran IVPUSH 12/22/18 13:54 8 mg ONETIME ONE Administration Pantoprazole Sodium 80 mg 12/22/18 14:54 12/22/18 15:04 Protonix Iv IVPUSH 12/22/18 14:55 80 mg .BOLUS ONE Administration Departure - Departure Time of Disposition: 15:56 Disposition: Home, Self-Care 01 Condition: Good Clinical Impression: Abdominal pain - Discharge Information Referrals: PCP,Unknown [Primary Care Provider] - Forms: ED Department Discharge Additional Instructions: Medication as prescribed Sullivan diet no greasy foods deep-fried foods et as discussed Return if symptoms persist or worsen Follow-up with general surgery, ER referral provided for consideration of HIDA scan testing [facility] - General Surgery Professional [address], [address] [place] [address] The following information is given to patients seen in the emergency department who are being discharged to home. This information is to outline your options for follow-up care. We provide all patients seen in our emergency department with a follow-up referral. The need for follow-up, as well as the timing and circumstances, are variable depending upon the specifics of your emergency department visit. If you don't have a primary care physician on staff, we will provide you with a referral. We always advise you to contact your personal physician following an emergency department visit to inform them of the circumstance of the visit and for follow-up with them and/or the need for any referrals to a consulting specialist. The emergency department will also refer you to a specialist when appropriate. This referral assures that you have the opportunity for follow-up care with a specialist. All of these measure are taken in an effort to provide you with optimal care, which includes your follow-up. Under all circumstances we always encourage you to contact your private physician who remains a resource for coordinating your care. When calling for follow-up care, please make the office aware that this follow-up is from your recent emergency room visit. If for any reason you are refused follow-up, please contact the [facility] emergency department at and asked to speak to the emergency department charge nurse.
[2018-12-22 14:30] LABS: CHLORIDE,CL 104 mmol/L (98-107); SODIUM,NA 141 mmol/L (136-145)
[2018-12-22] MEDS ORDERED: Ketorolac 30 MG/ML SDV IVPUSH ONE (14:54)
[2018-12-22] MEDS ORDERED: Pantoprazole 40 MG Vial IVPUSH ONE (14:54)
[2018-12-22] MEDS ORDERED: Iopamidol 755 MG/ML 500 ML Multipack Bottle IVPUSH ONE (15:27)
--- NOTE | 2018-12-22 15:51 | CT ---
TECHNIQUE: IV contrast-enhanced CT abdomen pelvis. 58 mL Isovue-370 injected. INDICATION: Abdominal pain. COMPARISON: 05/25/[address] FINDINGS: The liver, spleen, pancreas, adrenal glands, and right kidney are normal. There is a tiny nonobstructing stone in the mid left kidney. No obstructing stone or hydronephrosis. Gallbladder and biliary tree are unremarkable. Bowel is unremarkable. No adenopathy, free air, or free fluid. Lung bases are clear. IMPRESSION: 1. No acute findings in the abdomen or pelvis. 2. Left nephrolithiasis. Dictated by Herman Baer MD @ 12/22/2018 3:50:53 PM Please note that all CT scans at this facility use dose modulation, iterative reconstruction, and/or weight-based dosing when appropriate to reduce radiation dose to as low as reasonably achievable. Dictated by: Herman Baer MD @ 12/22/2018 15:50:59 (Electronically Signed)
[2018-12-22 16:29] VITALS: BP 115/53
== END 2018-12-22 16:30 | disposition home or self-care (01) ==
LOC: MW.ED 13:34
DX: R11.2 Nausea with vomiting, unspecified (principal); R19.7 Diarrhea, unspecified; R10.11 Right upper quadrant pain; F41.9 Anxiety disorder, unspecified; F32.9 Major depressive disorder, single episode, unspecified; Z88.5 Allergy status to narcotic agent; Z88.8 Allergy status to other drugs, medicaments and biological substances; Z79.899 Other long term (current) drug therapy
CPT/HCPCS: 36415; 74177; 80053; 81003; 81025; 83690; 84702; 85025; 96361; 96374; 96375; 99284; C9113; J1885; J2405; J7040; Q9967

== ENCOUNTER 2019-01-10 07:53 | Day surgery (SDC) | payer MEDICAID ==
[~2019-01-10 07:53] MED LIST: Lidocaine 2% 5 ML SDV ONE; Midazolam 1 MG/ML 2 ML SDV ONE; Propofol 200 MG/20 ML SDV ONE
[2019-01-10] MEDS ORDERED: Lactated Ringers 1,000 ML IV SCH ×2 (08:00→10:00)
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
[2019-01-10] MEDS ORDERED: Propofol 200 MG/20 ML SDV ONE (09:49)
--- NOTE | 2019-01-10 09:57 | PCM.OPNOTE ---
- General Post-Op/Procedure Note Date of Surgery/Procedure: 01/10/19 Operative Procedure(s): Esophagogastroduodenoscopy with biopsy Pre Op Diagnosis: Epigastric and right upper quadrant pain. Dysphagia. Post-Op Diagnosis: Moderate gastritis with multiple superficial gastric ulcers Anesthesia Technique: MAC (ASA II) Primary Surgeon: Americo Rodríguez Condition: Good Free Text/Narrative:: DICTATION [id number] CPT CODE 74568
--- NOTE | 2019-01-10 10:54 | PCM48HPAN ---
Post Anesthesia Note - EVALUATION WITHIN 48HRS OF ANESTHETIC Vital Signs in Normal Range: Yes Patient Participated in Evaluation: Yes Respiratory Function Stable: Yes Airway Patent: Yes Cardiovascular Function Stable: Yes Hydration Status Stable: Yes Pain Control Satisfactory: Yes Nausea and Vomiting Control Satisfactory: Yes Mental Status Recovered: Yes Resp Rate: 18 - COMMENTS/OBSERVATIONS Free Text/Narrative:: No anesthesia problems
[2019-01-10 11:42] VITALS: BP 100/58; PULSE 63
--- NOTE | 2019-01-10 15:32 | OR ---
SURGEON: Americo Rodríguez M.D. DATE OF PROCEDURE: 01/10/2019 OPERATION PERFORMED: Esophagogastroduodenoscopy with gastric biopsy. PRIMARY SURGEON: Americo Rodríguez M.D. ANESTHESIA: MAC. ASA CLASSIFICATION: II. PREOPERATIVE DIAGNOSIS: Epigastric and right upper quadrant pain with dysphagia. POSTOPERATIVE DIAGNOSIS: Moderate gastritis with superficial gastric ulcers. DESCRIPTION OF PROCEDURE: The patient was taken to the endoscopy room and positioned on the endoscopy table in the supine position. Time-out was called for appropriate identification of the patient and procedure. Monitored anesthesia care was provided. The bite block was placed between the patient's teeth. The gastroscope was inserted through the bite block into the oropharynx and advanced without difficulty into the esophagus and subsequently through the esophagus and stomach into the duodenum where examination was now carried out in a retrograde fashion. The duodenum shows no acute inflammatory changes or ulcerations. The stomach does show a [id number] gastritis with multiple superficial small gastric ulcers. Biopsies of the stomach were obtained being specific to take biopsies of the ulcers. No deep ulcer crater was noted. No bleeding was noted. The gastroscope was retroflexed to visualize the proximal stomach. There were no acute inflammatory changes or proximal ulcers. No tumors were seen. The GE junction was visualized. There was no significant hiatal hernia. The gastroscope was then straightened and slowly withdrawn aspirating the stomach as the scope was withdrawn. The GE junction was well defined and shows no acute inflammatory changes or ulcerations. The esophagus itself demonstrates good contractility. No mid or proximal lesions were identified. The vocal cords were visualized as the scope was withdrawn and noted to move symmetrically. The gastroscope was then removed with the patient having tolerated the procedure well. She was taken to recovery room in stable condition. KENYA / MARISSA /[id number]
== END 2019-01-10 11:08 | disposition home or self-care (01) ==
LOC: MW.SDS 07:53
PROVIDERS: ATTEND Surgery
DX: K29.00 Acute gastritis without bleeding (principal); K29.50 Unspecified chronic gastritis without bleeding; E06.3 Autoimmune thyroiditis; E55.9 Vitamin D deficiency, unspecified; E04.1 Nontoxic single thyroid nodule; F41.8 Other specified anxiety disorders; F43.10 Post-traumatic stress disorder, unspecified; G43.909 Migraine, unspecified, not intractable, without status migrainosus; Z88.5 Allergy status to narcotic agent; Z88.8 Allergy status to other drugs, medicaments and biological substances; Z91.040 Latex allergy status; Z91.048 Other nonmedicinal substance allergy status; Z79.899 Other long term (current) drug therapy
CPT/HCPCS: 43239; 81025; J2001; J2250; J2704; J7120; 00731; 88305; 88312

== ENCOUNTER 2019-03-02 21:01 | Emergency (ER) | payer MEDICAID ==
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
[2019-03-02 21:35] VITALS: BP 112/77; PULSE 80
[2019-03-02 22:01] LABS: BLOOD UREA NITROGEN,BUN 15 mg/dL (7.0-18.0); CHLORIDE,CL 101 mmol/L (98-107); GLUCOSE RANDOM 98 mg/dL (74-106); POTASSIUM,K 3.9 mmol/L (3.5-5.1); SODIUM,NA 140 mmol/L (136-145)
--- NOTE | 2019-03-02 22:14 | CR ---
INDICATION: Cough. Shortness of breath. TECHNIQUE: PA and lateral chest. FINDINGS: Clear lungs. Normal heart size and pulmonary vascularity. Slight upper thoracic curve convex towards the left. IMPRESSION: No acute cardiopulmonary process identified. No change. Dictated by Julio Gonzláes MD @ Mar 02 2019 10:03PM Signed by Dr. Julio Gonzáles @ Mar 02 2019 10:12PM
== END 2019-03-02 22:32 | disposition home or self-care (01) ==
LOC: MW.ED 21:01
DX: J20.9 Acute bronchitis, unspecified (principal); Z88.5 Allergy status to narcotic agent; Z88.8 Allergy status to other drugs, medicaments and biological substances; Z91.040 Latex allergy status; Z91.018 Allergy to other foods
CPT/HCPCS: 36415; 71046; 71046-26; 80053; 81003; 85025; 99283-25

== ENCOUNTER 2019-03-26 16:29 | Emergency (ER) | payer MEDICAID ==
[2019-03-26] MEDS ORDERED: Sodium Chloride 0.9% 1,000 ML IV ONE (16:36)
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
[2019-03-26] MEDS ORDERED: Ondansetron 4 MG/2 ML SDV IVPUSH ONE (16:43)
[2019-03-26] MEDS ORDERED: Ketorolac 30 MG/ML SDV IVPUSH ONE (16:43)
[2019-03-26 17:29] LABS: BLOOD UREA NITROGEN,BUN 9 mg/dL (7.0-18.0); CARBON DIOXIDE,CO2 27.8 mmol/L (21.0-32.0); CHLORIDE,CL 101 mmol/L (98-107); GLUCOSE RANDOM 96 mg/dL (74-106); LIPASE 105 U/L (73-393); POTASSIUM,K 3.7 mmol/L (3.5-5.1); SODIUM,NA 141 mmol/L (136-145)
--- NOTE | 2019-03-26 17:58 | US ---
INDICATION: Right upper quadrant pain TECHNIQUE: Ultrasound abdomen limited. Sonographic images of the right upper quadrant were obtained using gotti-scale and color Doppler images. COMPARISON: May 25, 2020 FINDINGS: Liver: Normal in size and echotexture. No masses. No intrahepatic biliary dilatation. Gallbladder: No stones or sludge. Normal wall thickness. No pericholecystic fluid. Common bile duct: 3 mm. Pancreas: Normal. Right kidney: 9.8 cm. Normal echotexture and cortex. No masses, stones, or hydronephrosis. IMPRESSION: Unremarkable right upper quadrant ultrasound. Dictated by Terrie Finney MD @ Mar 26 2019 5:56PM Signed by Dr. Terrie Finney @ Mar 26 2019 5:57PM
[2019-03-26] MEDS ORDERED: traMADol 50 MG Tab PO ONE (18:07)
[2019-03-26 18:22] VITALS: BP 100/53; PULSE 64
== END 2019-03-26 18:17 | disposition home or self-care (01) ==
LOC: MW.ED 16:29
DX: K80.50 Calculus of bile duct without cholangitis or cholecystitis without obstruction (principal); K21.9 Gastro-esophageal reflux disease without esophagitis; F41.9 Anxiety disorder, unspecified; Z91.040 Latex allergy status; Z88.5 Allergy status to narcotic agent; Z88.8 Allergy status to other drugs, medicaments and biological substances; Z91.048 Other nonmedicinal substance allergy status; Z91.018 Allergy to other foods; Z79.899 Other long term (current) drug therapy
CPT/HCPCS: 36415; 76705; 80053; 81003; 83690; 84703; 85025; 96361; 96374; 96375; 99284; J1885; J2405; J7040

== ENCOUNTER 2019-04-05 10:54 | Emergency (ER) | payer MEDICAID ==
[2019-04-05] MEDS ORDERED: Sodium Chloride 0.9% 10 ML Syringe FLUSH PRN (11:03)
[2019-04-05] MEDS ORDERED: Sodium Chloride 0.9% 2.5 ML Syringe FLUSH PRN (11:03)
[2019-04-05] MEDS ORDERED: Sodium Chloride 0.9% 1,000 ML IV ONE (11:03)
[2019-04-05] MEDS ORDERED: Ketorolac 30 MG/ML SDV IVPUSH ONE (11:06)
[2019-04-05] MEDS ORDERED: Ondansetron 4 MG/2 ML SDV IVPUSH ONE (11:23)
[2019-04-05 11:32] LABS: BLOOD UREA NITROGEN,BUN 12 mg/dL (7.0-18.0); CARBON DIOXIDE,CO2 27.2 mmol/L (21.0-32.0); CHLORIDE,CL 106 mmol/L (98-107); GLUCOSE RANDOM 80 mg/dL (74-106); LIPASE 103 U/L (73-393); SODIUM,NA 143 mmol/L (136-145)
[2019-04-05] MEDS ORDERED: Hyoscyamine 0.125 MG Tab.SL SL ONE (12:19)
[2019-04-05] MEDS ORDERED: Iopamidol 755 MG/ML 500 ML Multipack Bottle IVPUSH STA (12:42)
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
--- NOTE | 2019-04-05 13:17 | CT ---
INDICATION: Right upper quadrant pain for 3 days with nausea, vomiting and diarrhea. Scheduled for cholecystectomy on 04/18/2019. TECHNIQUE: CT abdomen and pelvis acquired with 70 mL of Isovue 370 IV contrast. COMPARISON: CT abdomen and pelvis 12/22/2018. FINDINGS: Lower chest: Unremarkable. Liver: Unremarkable. Spleen: Unremarkable. Pancreas: Unremarkable. Gallbladder and bile ducts: No calcified stones, inflammatory changes or biliary ductal dilatation. Kidneys: Unremarkable. Adrenal glands: Unremarkable. GI tract: No obstruction or focal inflammatory changes. No evidence of acute appendicitis. No free intraperitoneal gas for drainable fluid collection. Vascular structures: Unremarkable. Lymph nodes: Unremarkable. Pelvic Organs: Trace pelvic free fluid is likely physiologic in nature. Uterus, bilateral adnexal regions and urinary bladder as imaged are unremarkable. Bones: No acute abnormality. IMPRESSION: No acute intra-abdominal or pelvic abnormality. Dictated by Ambrosio Cisneros MD @ 04/05/2019 1:14:36 PM Please note that all CT scans at this facility use dose modulation, iterative reconstruction, and/or weight-based dosing when appropriate to reduce radiation dose to as low as reasonably achievable. Dictated by: Ambrosio Cisneros MD @ 04/05/2019 13:14:46 (Electronically Signed)
[2019-04-05 14:36] VITALS: BP 99/58; PULSE 77
== END 2019-04-05 13:45 | disposition home or self-care (01) ==
LOC: MW.ED 10:54
DX: R10.84 Generalized abdominal pain (principal); R56.9 Unspecified convulsions; Z79.899 Other long term (current) drug therapy; Z88.6 Allergy status to analgesic agent; Z88.2 Allergy status to sulfonamides; Z88.8 Allergy status to other drugs, medicaments and biological substances; Z91.018 Allergy to other foods; Z91.040 Latex allergy status; Z91.048 Other nonmedicinal substance allergy status
CPT/HCPCS: 36415; 74177; 80053; 81001; 81025; 83690; 85025; 99284; A9270; J1885; J2405; J7040

== ENCOUNTER 2019-04-18 06:33 | Day surgery (SDC) | payer MEDICAID ==
[~2019-04-18 06:33] MED LIST changes: +Lactated Ringers 1,000 ML IV SCH; -Lidocaine 2% 5 ML SDV ONE; -Midazolam 1 MG/ML 2 ML SDV ONE; -Propofol 200 MG/20 ML SDV ONE; +cefOXitin 1 GM in Premix Bag 1 BAG IV ONE
[2019-04-18] MEDS ORDERED: ceFAZolin 1 GM Vial ONE (07:23)
[2019-04-18] MEDS ORDERED: Bupivacaine 0.5% 30 ML SDV ONE ×2 (07:24→07:30)
[2019-04-18] MEDS ORDERED: Scopolamine 1.5 MG Transdermal Patch TRDERM PRN (07:30)
[2019-04-18] MEDS ORDERED: Midazolam 1 MG/ML 2 ML SDV ONE (07:30)
[2019-04-18] MEDS ORDERED: fentaNYL 100 MCG/2 ML SDV ONE (07:30)
[2019-04-18] MEDS ORDERED: Rocuronium 100 MG/10 ML Syringe ONE (07:31)
[2019-04-18] MEDS ORDERED: Propofol 200 MG/20 ML SDV ONE (07:31)
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
[2019-04-18] MEDS ORDERED: HYDROmorphone 2 MG/ML Syringe ONE (08:27)
[2019-04-18] MEDS ORDERED: Dexamethasone 4 MG/ML 5 ML MDV ONE (08:35)
[2019-04-18] MEDS ORDERED: Ondansetron 4 MG/2 ML SDV ONE ×2 (08:35→09:00)
[2019-04-18] MEDS ORDERED: Sugammadex Sodium 200 MG/2 ML VIAL ONE (09:04)
[2019-04-18] MEDS ORDERED: Acetaminophen/HYDROcodone 325-5 MG Tab PO PRN (09:18)
--- NOTE | 2019-04-18 09:20 | PCM.OPNOTE ---
- General Post-Op/Procedure Note Date of Surgery/Procedure: 04/18/19 Operative Procedure(s): Laparoscopic cholecystectomy Pre Op Diagnosis: Chronic right upper quadrant pain. Abnormal hepatobiliary scan. Post-Op Diagnosis: Mild chronic cholecystitis. Anesthesia Technique: General ET Tube (ASA II) Primary Surgeon: Americo Rodríguez Machine Egg Washer: Rachel Junior Fluid Replacement, Intraop: 1,300 Output, Urine Amount: 70 EBL in mLs: 10 Condition: Good Free Text/Narrative:: DICTATION [id number] CPT CODE [id number]
[2019-04-18] MEDS ORDERED: Lactated Ringers 1,000 ML IV SCH (09:30)
[2019-04-18] MEDS ORDERED: Ketorolac 30 MG/ML SDV IVPUSH ONE (09:47)
[2019-04-18] MEDS ORDERED: Acetaminophen 1,000 MG in Premix Bag 1 BAG IV ONE (09:47)
--- NOTE | 2019-04-18 10:26 | PCM.POSTAN ---
POST ANESTHESIA ASSESSMENT - MENTAL STATUS Mental Status: Alert, Oriented - VITAL SIGNS Vital Signs: Last Vital Signs Temp 36.0 C 04/18/19 09:35 Pulse 68 04/18/19 10:20 Resp 19 04/18/19 10:20 BP 113/69 04/18/19 10:20 Pulse Ox 100 04/18/19 10:20 - RESPIRATORY Respiratory Status: Respiratory Rate WNL, Airway Patent, O2 Saturation Stable - CARDIOVASCULAR CV Status: Pulse Rate WNL, Blood Pressure Stable - GASTROINTESTINAL GI Status: No Symptoms - POST OP HYDRATION Hydration Status: Adequate & Stable
--- NOTE | 2019-04-18 10:35 | OR ---
SURGEON: Americo Rodríguez M.D. DATE OF PROCEDURE: 04/18/2019 OPERATION PERFORMED: Laparoscopic cholecystectomy. PRIMARY SURGEON: Americo Rodríguez MD. PLANOGRAMMER: food service assistant: TEOFILO Vaca, reproductive healthcare assistant student. ANESTHESIA: General endotracheal ASA CLASSIFICATION: II. PREOPERATIVE DIAGNOSES: 1. Chronic right upper quadrant pain. 2. Abnormal hepatobiliary scan. POSTOPERATIVE DIAGNOSES: 1. Chronic right upper quadrant pain. 2. Abnormal hepatobiliary scan. ESTIMATED BLOOD LOSS: 10 mL. INTRAOPERATIVE FLUID REPLACEMENT: 1300 mL of crystalloid. INTRAOPERATIVE URINARY OUTPUT: 70 mL. DESCRIPTION OF PROCEDURE: The patient was taken to the operating room and placed on the operating table in the supine position. Time-out was called for appropriate identification of the patient and procedure. Thigh-high TEDs and sequential compression boots were placed. Following satisfactory attainment of general endotracheal anesthesia, a Pa catheter was placed in the patient's urinary bladder. The abdomen was prepped with DuraPrep solution and sterile drapes were applied. Skin below the umbilicus was infiltrated with 0.5% Marcaine solution. A skin incision was made and deepened into the subcutaneous tissue obtaining hemostasis with the use of electrocautery. The Veress needle was introduced into the peritoneal cavity. Saline drop test was positive. Carbon dioxide pneumoperitoneum was established with the release set at 13 cm of water. Once a satisfactory pneumoperitoneum was established, 5 mm camera and port were placed through the infraumbilical incision. Under camera vision, 12 mm subxiphoid, 5 mm midclavicular, and 5 mm anterior axillary ports were placed. Each incision had preemptively been infiltrated with 0.5% Marcaine solution. The patient was now positioned with her head up and rolled to the left. The gallbladder was grasped and adhesions were taken down. The cholecystohepatic triangle was dissected free, identifying the cystic duct and cystic artery and obtaining good critical views of both structures before individually hemoclipping them. Once they had been hemoclipped and divided, the gallbladder was dissected away from its bed using electrocautery. Small amount of bile was spilled. No stones were spilled. Once the gallbladder was amputated, this was placed in an Endo Catch. The right upper quadrant was inspected for hemostasis and no bleeding was noted from the gallbladder bed. The right upper quadrant was irrigated with sterile saline solution. All fluid was aspirated. The right hemidiaphragm was then irrigated with 250 mL of saline containing 20 mL of 0.5% Marcaine solution. That fluid was left in place. The 12 mm subxiphoid port and Endo Catch containing gallbladder were removed. Again, under camera vision, the 5 mm midclavicular and anterior axillary ports were removed and finally the infraumbilical camera and port were removed. Wounds were inspected for hemostasis and small bleeding sites were electrocoagulated. The subxiphoid and infraumbilical incisions were closed in 2 layers approximating the subcutaneous tissue with 3-0 Vicryl and the skin with subcuticular 4-0 Monocryl. The anterior axillary and midclavicular incisions were closed with subcuticular 4-0 Monocryl. All incisions were Steri- Stripped and dressed with sterile Tegaderm pads. Sponge, needle, and instrument counts were all correct. Pa catheter was removed prior to emergence from anesthesia. Following emergence from anesthesia and extubation, the patient was taken to recovery room in stable condition. KENYA ANN /[id number]
[2019-04-18] MEDS ORDERED: oxyCODONE 5 MG Tab PO ONE ×2 (10:41→12:50)
[2019-04-18] MEDS ORDERED: oxyCODONE 5 MG Tab ONE (10:44)
[2019-04-18 13:07] VITALS: BP 120/68; PULSE 68
--- NOTE | 2019-04-18 13:59 | PCM48HPAN ---
Post Anesthesia Note - EVALUATION WITHIN 48HRS OF ANESTHETIC Vital Signs in Normal Range: Yes Patient Participated in Evaluation: Yes Respiratory Function Stable: Yes Airway Patent: Yes Cardiovascular Function Stable: Yes Hydration Status Stable: Yes Pain Control Satisfactory: Yes Nausea and Vomiting Control Satisfactory: Yes Mental Status Recovered: Yes Vital Signs: Last Vital Signs Temp 98.2 F 04/18/19 12:25 Pulse 68 04/18/19 13:00 Resp 16 04/18/19 13:00 BP 120/68 04/18/19 13:00 Pulse Ox 97 04/18/19 13:00
== END 2019-04-18 13:45 | disposition home or self-care (01) ==
LOC: MW.SDS 06:33
PROVIDERS: ATTEND Surgery
DX: K81.1 Chronic cholecystitis (principal); K21.9 Gastro-esophageal reflux disease without esophagitis; G43.909 Migraine, unspecified, not intractable, without status migrainosus; E55.9 Vitamin D deficiency, unspecified; Z88.8 Allergy status to other drugs, medicaments and biological substances; Z88.5 Allergy status to narcotic agent; Z91.040 Latex allergy status
CPT/HCPCS: 47562; 81025; A9270; J0131; J0694; J1100; J1170; J1885; J2250; J2405; J2704; J3010; J3490; J7120; 00790; 88304; J0690

== ENCOUNTER 2019-04-18 14:58 | Observation (INO) | payer MEDICAID ==
[2019-04-18] MEDS ORDERED: Sodium Chloride 0.9% 1,000 ML IV ONE (15:09)
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
[2019-04-18] MEDS ORDERED: Ondansetron 4 MG/2 ML SDV IVPUSH PRN (15:28)
[2019-04-18] MEDS: Acetaminophen/HYDROcodone 325-5 MG Tab PO PRN (16:57)
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
[2019-04-18] MEDS: Lactated Ringers 1,000 ML IV SCH (17:27)
[2019-04-18] MEDS: HYDROmorphone 1 MG/ML Syringe IVPUSH PRN ×2 (17:55→22:25)
[2019-04-18 18:30] LABS: BLOOD UREA NITROGEN,BUN 8 mg/dL (7.0-18.0); CARBON DIOXIDE,CO2 24.7 mmol/L (21.0-32.0); CHLORIDE,CL 107 mmol/L (98-107); GLUCOSE RANDOM 110 mg/dL (74-106); POTASSIUM,K 4.3 mmol/L (3.5-5.1); SODIUM,NA 140 mmol/L (136-145)
[2019-04-18] MEDS: traMADol 50 MG Tab PO PRN (20:19)
[2019-04-18] MEDS ORDERED: Pregabalin 25 MG Cap PO SCH (21:00)
[2019-04-18] MEDS ORDERED: DIVALPROEX SODIUM 125 MG PO SCH (21:00)
[2019-04-19] MEDS: Lactated Ringers 1,000 ML IV SCH (01:00)
[2019-04-19] MEDS: Acetaminophen/HYDROcodone 325-5 MG Tab PO PRN ×2 (01:08→07:28)
[2019-04-19] MEDS: traMADol 50 MG Tab PO PRN (08:45)
[2019-04-19] MEDS ORDERED: Cyanocobalamin (Vitamin B12) 500 MCG Tab PO SCH (09:00)
[2019-04-19] MEDS ORDERED: CHOLECALCIFEROL 2000 UNIT PO SCH (09:00)
--- NOTE | 2019-04-19 09:19 | PCM.SURGPN ---
<José Miguel Larios - Last Filed: 04/19/19 09:21> - General Info Date of Service: 04/19/19 POD#: 1 Post-Op Diagnosis: Mild Chronic cholecystitis Admission Diagnosis/Problem: Syncope Functional Status: Reports: Tolerating Diet, Ambulating, Urinating, Other ( Still feeling slightly lightheaded when getting up. Still endorsing pain to RUQ and around incisions. ) - Review of Systems General: Denies: Fever, Chills HEENT: Reports: No Symptoms Pulmonary: Denies: Shortness of Breath, Cough Cardiovascular: Reports: Lightheadedness. Denies: Chest Pain, Palpitations Gastrointestinal: Reports: Abdominal Pain, Nausea (Mild). Denies: Diarrhea, Vomiting Genitourinary: Reports: No Symptoms Musculoskeletal: Reports: No Symptoms Skin: Reports: No Symptoms Neurological: Reports: Dizziness Psychiatric: Reports: No Symptoms - Patient Data Vitals - Most Recent: Last Vital Signs Temp 98.3 F 04/19/19 04:23 Pulse 80 04/19/19 04:23 Resp 16 04/19/19 04:23 BP 100/60 04/19/19 04:23 Pulse Ox 97 04/19/19 04:23 Orthostatic Blood Pressure [ 105/62 Standing] Orthostatic Blood Pressure [ 101/61 Sitting] Orthostatic Blood Pressure [ 106/53 Supine] Weight - Most Recent: 120 lb I&O - Last 24 Hours: Intake & Output 04/18/19 04/19/19 04/19/19 22:59 06:59 14:59 Intake Total 1953 Output Total 1450 Balance 503 Lab Results Last 24 Hrs: Laboratory Results - last 24 hr 04/18/19 04/18/19 Range/Units 17:55 17:55 WBC 10.62 (4.0-11.0) K/uL RBC 4.07 L (4.30-5.90) M/uL Hgb 12.0 (12.0-16.0) g/dL Hct 35.5 L (36.0-46.0) % MCV 87.2 (80.0-98.0) fL MCH 29.5 (27.0-32.0) pg MCHC 33.8 (31.0-37.0) g/dL RDW Std Deviation 42.3 (28.0-62.0) fl RDW Coeff of Axel 13 (11.0-15.0) % Plt Count 270 (150-400) K/uL MPV 10.80 (7.40-12.00) fL Neut % (Auto) 92.0 H (48.0-80.0) % Lymph % (Auto) 5.6 L (16.0-40.0) % [place] % (Auto) 2.3 (0.0-15.0) % Eos % (Auto) 0.0 (0.0-7.0) % Baso % (Auto) 0.1 (0.0-1.5) % Neut # (Auto) 9.8 H (1.4-5.7) K/uL Lymph # (Auto) 0.6 (0.6-2.4) K/uL [place] # (Auto) 0.2 (0.0-0.8) K/uL Eos # (Auto) 0.0 (0.0-0.7) K/uL Baso # (Auto) 0.0 (0.0-0.1) K/uL Nucleated RBC % 0.0 /100WBC Nucleated RBCs # 0 K/uL Sodium 140 (136-145) mmol/L Potassium 4.3 (3.5-5.1) mmol/L Chloride 107 (98-107) mmol/L Carbon Dioxide 24.7 (21.0-32.0) mmol/L BUN 8 (7.0-18.0) mg/dL Creatinine 0.8 (0.6-1.0) mg/dL Est Cr Clr Drug Dosing 85.02 mL/min Estimated GFR (MDRD) > 60.0 ml/min Glucose 110 H (74-106) mg/dL Calcium 8.4 L (8.5-10.1) mg/dL Total Bilirubin 0.3 (0.2-1.0) mg/dL AST 33 (15-37) IU/L ALT 27 (14-63) IU/L Alkaline Phosphatase 72 (46-116) U/L Total Protein 7.2 (6.4-8.2) g/dL Albumin 3.6 (3.4-5.0) g/dL Globulin 3.6 (2.6-4.0) g/dL Albumin/Globulin Ratio 1.0 (0.9-1.6) Med Orders - Current: Current Medications Hydrocodone Bitart/Acetaminophen ([place] 325-5 Mg) 1 tab PO Q6H PRN PRN Reason: Pain (moderate 4-6) Last Admin: 04/19/19 07:28 Dose: 1 tab Cyanocobalamin (Vitamin B12) 500 mcg PO DAILY [facility] Last Admin: 04/19/19 08:44 Dose: 500 mcg Hydromorphone HCl (Dilaudid) 1 mg IVPUSH Q2H PRN PRN Reason: Pain (severe 7-10) Last Admin: 04/18/19 22:25 Dose: 1 mg Lactated Ringer's (Ringers, Lactated) 1,000 mls @ 100 mls/hr IV ASDIRECTED [facility] Last Admin: 04/19/19 01:00 Dose: 100 mls/hr Ondansetron HCl (Zofran) 4 mg IVPUSH Q6H PRN PRN Reason: Nausea/Vomiting Last Admin: 04/18/19 16:57 Dose: 4 mg Cholecalciferol ( Vitamin D3) [Vitamin D3] 2,000 Unit 1 each PO DAILY [facility] Last Admin: 04/19/19 08:45 Dose: Not Given Divalproex Sodium (125 Mg) 1 each PO BEDTIME [facility] Last Admin: 04/18/19 20:20 Dose: Not Given Pregabalin (Lyrica) 25 mg PO BEDTIME [facility] Last Admin: 04/18/19 20:19 Dose: 25 mg Tramadol HCl (Ultram) 50 mg PO Q6H PRN PRN Reason: Pain (mild 1-3) Last Admin: 04/19/19 08:45 Dose: 50 mg Discontinued Medications Sodium Chloride (Normal Saline) 1,000 mls @ 999 mls/hr IV STAT ONE Stop: 04/18/19 16:09 Last Admin: 04/18/19 15:30 Dose: 999 mls/hr - Exam Wound/Incisions: Dressing Dry and Intact General: Alert, Oriented, Cooperative HEENT: Pupils Equal, Pupils Reactive, EOMI Lungs: Clear to Auscultation, Normal Respiratory Effort Cardiovascular: Regular Rate, Regular Rhythm, No Murmurs GI/Abdominal Exam: Normal Bowel Sounds, Soft, No Distention, Tender (mildly ) Extremities: No Pedal Edema Skin: Warm, Dry, Intact - Problem List & Annotations (1) Syncope SNOMED Code(s): 998908380 Code(s): R55 - SYNCOPE AND COLLAPSE Status: Acute Priority: Medium Current Visit: Yes Qualifiers: Syncope type: unspecified Qualified Code(s): R55 - Syncope and collapse (2) Abdominal pain SNOMED Code(s): 14868237 Code(s): R10.9 - UNSPECIFIED ABDOMINAL PAIN Status: Acute Priority: Medium Current Visit: No Onset Date: 07/17/14 - Problem List Review Problem List Initiated/Reviewed/Updated: Yes - My Orders Last 24 Hours: Active Orders 24 hr Category Date Time Status Admission Status [Patient Status] [ADT] Stat ADT 04/18/19 15:12 Active Antiembolic Devices [RC] PER UNIT ROUTINE Care 04/18/19 15:28 Active RT Incentive Spirometry [RC] Q1HWA Care 04/18/19 15:27 Active Telemetry Monitoring [Cardiac Monitoring] [RC] Q8H Care 04/18/19 15:42 Active Up ad Beth [RC] ASDIRECTED Care 04/18/19 15:27 Active Low Fat Diet [DIET] Diet 04/18/19 Dinner Active Acetaminophen/HYDROcodone [[place] 325-5 MG] Med 04/18/19 15:28 Active 1 tab PO Q6H PRN Cyanocobalamin (Vitamin B12) [Vitamin B12] Med 04/19/19 09:00 Active 500 mcg PO DAILY HYDROmorphone [Dilaudid] Med 04/18/19 17:01 Active 1 mg IVPUSH Q2H PRN Lactated Ringers [Ringers, Lactated] 1,000 ml Med 04/18/19 17:15 Active IV ASDIRECTED Ondansetron [Zofran] Med 04/18/19 15:28 Active 4 mg IVPUSH Q6H PRN Patient's Own Medication [Ptom] Med 04/18/19 21:00 Active 1 each PO BEDTIME Patient's Own Medication [Ptom] Med 04/19/19 09:00 Active 1 each PO DAILY Pregabalin [Lyrica] Med 04/18/19 21:00 Active 25 mg PO BEDTIME traMADol [Ultram] Med 04/18/19 17:00 Active 50 mg PO Q6H PRN Breast Pump [WOMSER] Routine Oth 04/18/19 16:59 Ordered Sequential Compression Device [OM.PC] Routine Oth 04/18/19 15:27 Ordered Medication Orders Hydrocodone Bitart/Acetaminophen ([place] 325-5 Mg) 1 tab PO Q6H PRN PRN Reason: Pain (moderate 4-6) Last Admin: 04/19/19 07:28 Dose: 1 tab Admin: 04/19/19 01:08 Dose: 1 tab Admin: 04/18/19 16:57 Dose: 1 tab Cyanocobalamin (Vitamin B12) 500 mcg PO DAILY [facility] Last Admin: 04/19/19 08:44 Dose: 500 mcg Hydromorphone HCl (Dilaudid) 1 mg IVPUSH Q2H PRN PRN Reason: Pain (severe 7-10) Last Admin: 04/18/19 22:25 Dose: 1 mg Admin: 04/18/19 17:55 Dose: 1 mg Lactated Ringer's (Ringers, Lactated) 1,000 mls @ 100 mls/hr IV ASDIRECTED [facility] Last Admin: 04/19/19 01:00 Dose: 100 mls/hr Infusion: 04/19/19 01:00 Dose: 100 mls/hr Admin: 04/18/19 17:27 Dose: 100 mls/hr Ondansetron HCl (Zofran) 4 mg IVPUSH Q6H PRN PRN Reason: Nausea/Vomiting Last Admin: 04/18/19 16:57 Dose: 4 mg Cholecalciferol ( Vitamin D3) [Vitamin D3] 2,000 Unit 1 each PO DAILY [facility] Last Admin: 04/19/19 08:45 Dose: Divalproex Sodium (125 Mg) 1 each PO BEDTIME [facility] Last Admin: 04/18/19 20:20 Dose: Pregabalin (Lyrica) 25 mg PO BEDTIME [facility] Last Admin: 04/18/19 20:19 Dose: 25 mg Tramadol HCl (Ultram) 50 mg PO Q6H PRN PRN Reason: Pain (mild 1-3) Last Admin: 04/19/19 08:45 Dose: 50 mg Admin: 04/18/19 20:19 Dose: 50 mg - Assessment Assessment (Free Text/Narrative):: 23 yr old female POD#1 s/p laparoscopic cholecystectomy for biliary colic who was admitted after a syncopal episode at home. She continues to endorse RUQ pain and feeling lightheaded and dizzy upon standing. Telemetry overnight showed occasional PACs and PVCs no other abnormalities. - Plan Plan (Free Text/Narrative):: -Plan for discharge home today -Check Orthostatic blood pressures -PRN pain medications for at home -Encourage fluid intake <MarcosAmerico L - Last Filed: 04/19/19 09:58> - Patient Data Vitals - Most Recent: Last Vital Signs Temp 98.3 F 04/19/19 04:23 Pulse 80 04/19/19 04:23 Resp 16 04/19/19 04:23 BP 100/60 04/19/19 04:23 Pulse Ox 97 04/19/19 04:23 Orthostatic Blood Pressure [ 105/62 Standing] Orthostatic Blood Pressure [ 101/61 Sitting] Orthostatic Blood Pressure [ 106/53 Supine] I&O - Last 24 Hours: Intake & Output 04/18/19 04/19/19 04/19/19 19:59 03:59 11:59 Intake Total 749 1204 Output Total 1450 Balance 749 -246 Lab Results Last 24 Hrs: Laboratory Results - last 24 hr 04/18/19 04/18/19 Range/Units 17:55 17:55 WBC 10.62 (4.0-11.0) K/uL RBC 4.07 L (4.30-5.90) M/uL Hgb 12.0 (12.0-16.0) g/dL Hct 35.5 L (36.0-46.0) % MCV 87.2 (80.0-98.0) fL MCH 29.5 (27.0-32.0) pg MCHC 33.8 (31.0-37.0) g/dL RDW Std Deviation 42.3 (28.0-62.0) fl RDW Coeff of Axel 13 (11.0-15.0) % Plt Count 270 (150-400) K/uL MPV 10.80 (7.40-12.00) fL Neut % (Auto) 92.0 H (48.0-80.0) % Lymph % (Auto) 5.6 L (16.0-40.0) % [place]ila % (Auto) 2.3 (0.0-15.0) % Eos % (Auto) 0.0 (0.0-7.0) % Baso % (Auto) 0.1 (0.0-1.5) % Neut # (Auto) 9.8 H (1.4-5.7) K/uL Lymph # (Auto) 0.6 (0.6-2.4) K/uL [place] # (Auto) 0.2 (0.0-0.8) K/uL Eos # (Auto) 0.0 (0.0-0.7) K/uL Baso # (Auto) 0.0 (0.0-0.1) K/uL Nucleated RBC % 0.0 /100WBC Nucleated RBCs # 0 K/uL Sodium 140 (136-145) mmol/L Potassium 4.3 (3.5-5.1) mmol/L Chloride 107 (98-107) mmol/L Carbon Dioxide 24.7 (21.0-32.0) mmol/L BUN 8 (7.0-18.0) mg/dL Creatinine 0.8 (0.6-1.0) mg/dL Est Cr Clr Drug Dosing 85.02 mL/min Estimated GFR (MDRD) > 60.0 ml/min Glucose 110 H (74-106) mg/dL Calcium 8.4 L (8.5-10.1) mg/dL Total Bilirubin 0.3 (0.2-1.0) mg/dL AST 33 (15-37) IU/L ALT 27 (14-63) IU/L Alkaline Phosphatase 72 (46-116) U/L Total Protein 7.2 (6.4-8.2) g/dL Albumin 3.6 (3.4-5.0) g/dL Globulin 3.6 (2.6-4.0) g/dL Albumin/Globulin Ratio 1.0 (0.9-1.6) Med Orders - Current: Current Medications Hydrocodone Bitart/Acetaminophen ([place] 325-5 Mg) 1 tab PO Q6H PRN PRN Reason: Pain (moderate 4-6) Last Admin: 04/19/19 07:28 Dose: 1 tab Cyanocobalamin (Vitamin B12) 500 mcg PO DAILY [facility] Last Admin: 04/19/19 08:44 Dose: 500 mcg Hydromorphone HCl (Dilaudid) 1 mg IVPUSH Q2H PRN PRN Reason: Pain (severe 7-10) Last Admin: 04/18/19 22:25 Dose: 1 mg Lactated Ringer's (Ringers, Lactated) 1,000 mls @ 100 mls/hr IV ASDIRECTED [facility] Last Admin: 04/19/19 01:00 Dose: 100 mls/hr Ondansetron HCl (Zofran) 4 mg IVPUSH Q6H PRN PRN Reason: Nausea/Vomiting Last Admin: 04/18/19 16:57 Dose: 4 mg Cholecalciferol ( Vitamin D3) [Vitamin D3] 2,000 Unit 1 each PO DAILY [facility] Last Admin: 04/19/19 08:45 Dose: Not Given Divalproex Sodium (125 Mg) 1 each PO BEDTIME [facility] Last Admin: 04/18/19 20:20 Dose: Not Given Pregabalin (Lyrica) 25 mg PO BEDTIME [facility] Last Admin: 04/18/19 20:19 Dose: 25 mg Tramadol HCl (Ultram) 50 mg PO Q6H PRN PRN Reason: Pain (mild 1-3) Last Admin: 04/19/19 08:45 Dose: 50 mg Discontinued Medications Sodium Chloride (Normal Saline) 1,000 mls @ 999 mls/hr IV STAT ONE Stop: 04/18/19 16:09 Last Admin: 04/18/19 15:30 Dose: 999 mls/hr - Problem List & Annotations (1) Syncope SNOMED Code(s): 897693575 Code(s): R55 - SYNCOPE AND COLLAPSE Status: Acute Priority: Medium Current Visit: Yes Qualifiers: Syncope type: unspecified Qualified Code(s): R55 - Syncope and collapse (2) Abdominal pain SNOMED Code(s): 16319670 Code(s): R10.9 - UNSPECIFIED ABDOMINAL PAIN Status: Acute Priority: Medium Current Visit: No Onset Date: 07/17/14 - My Orders Last 24 Hours: Active Orders 24 hr Category Date Time Status Admission Status [Patient Status] [ADT] Stat ADT 04/18/19 15:12 Active Antiembolic Devices [RC] PER UNIT ROUTINE Care 04/18/19 15:28 Active RT Incentive Spirometry [RC] Q1HWA Care 04/18/19 15:27 Active Telemetry Monitoring [Cardiac Monitoring] [RC] Q8H Care 04/18/19 15:42 Active Up ad Beth [RC] ASDIRECTED Care 04/18/19 15:27 Active Low Fat Diet [DIET] Diet 04/18/19 Dinner Active Acetaminophen/HYDROcodone [[place] 325-5 MG] Med 04/18/19 15:28 Active 1 tab PO Q6H PRN Cyanocobalamin (Vitamin B12) [Vitamin B12] Med 04/19/19 09:00 Active 500 mcg PO DAILY HYDROmorphone [Dilaudid] Med 04/18/19 17:01 Active 1 mg IVPUSH Q2H PRN Lactated Ringers [Ringers, Lactated] 1,000 ml Med 04/18/19 17:15 Active IV ASDIRECTED Ondansetron [Zofran] Med 04/18/19 15:28 Active 4 mg IVPUSH Q6H PRN Patient's Own Medication [Ptom] Med 04/18/19 21:00 Active 1 each PO BEDTIME Patient's Own Medication [Ptom] Med 04/19/19 09:00 Active 1 each PO DAILY Pregabalin [Lyrica] Med 04/18/19 21:00 Active 25 mg PO BEDTIME traMADol [Ultram] Med 04/18/19 17:00 Active 50 mg PO Q6H PRN Breast Pump [WOMSER] Routine Oth 04/18/19 16:59 Ordered Sequential Compression Device [OM.PC] Routine Oth 04/18/19 15:27 Ordered Medication Orders Hydrocodone Bitart/Acetaminophen ([place] 325-5 Mg) 1 tab PO Q6H PRN PRN Reason: Pain (moderate 4-6) Last Admin: 04/19/19 07:28 Dose: 1 tab Admin: 04/19/19 01:08 Dose: 1 tab Admin: 04/18/19 16:57 Dose: 1 tab Cyanocobalamin (Vitamin B12) 500 mcg PO DAILY [facility] Last Admin: 04/19/19 08:44 Dose: 500 mcg Hydromorphone HCl (Dilaudid) 1 mg IVPUSH Q2H PRN PRN Reason: Pain (severe 7-10) Last Admin: 04/18/19 22:25 Dose: 1 mg Admin: 04/18/19 17:55 Dose: 1 mg Lactated Ringer's (Ringers, Lactated) 1,000 mls @ 100 mls/hr IV ASDIRECTED [facility] Last Admin: 04/19/19 01:00 Dose: 100 mls/hr Infusion: 04/19/19 01:00 Dose: 100 mls/hr Admin: 04/18/19 17:27 Dose: 100 mls/hr Ondansetron HCl (Zofran) 4 mg IVPUSH Q6H PRN PRN Reason: Nausea/Vomiting Last Admin: 04/18/19 16:57 Dose: 4 mg Cholecalciferol ( Vitamin D3) [Vitamin D3] 2,000 Unit 1 each PO DAILY [facility] Last Admin: 04/19/19 08:45 Dose: Divalproex Sodium (125 Mg) 1 each PO BEDTIME [facility] Last Admin: 04/18/19 20:20 Dose: Pregabalin (Lyrica) 25 mg PO BEDTIME [facility] Last Admin: 04/18/19 20:19 Dose: 25 mg Tramadol HCl (Ultram) 50 mg PO Q6H PRN PRN Reason: Pain (mild 1-3) Last Admin: 04/19/19 08:45 Dose: 50 mg Admin: 04/18/19 20:19 Dose: 50 mg - Assessment Assessment (Free Text/Narrative):: Patient has been hemodynamically stable through the night. Still c/o RUQ pain and right shoulder pain. PLAN: Discharge today. Keep scheduled clinic appointment. Will add Tramadol for 5 days.
[2019-04-19 11:54] VITALS: BP 98/60; PULSE 67
== END 2019-04-19 11:10 | disposition home or self-care (01) ==
LOC: MW.ED 14:58 → MW.MS 15:17
PROVIDERS: ADMIT Surgery; ATTEND Surgery
DX: R55 Syncope and collapse (principal); G89.18 Other acute postprocedural pain; R10.9 Unspecified abdominal pain; G43.909 Migraine, unspecified, not intractable, without status migrainosus; Z91.048 Other nonmedicinal substance allergy status; Z88.5 Allergy status to narcotic agent; Z88.8 Allergy status to other drugs, medicaments and biological substances; Z79.899 Other long term (current) drug therapy
CPT/HCPCS: 36415; 80053; 85025; 93005; 99285; A9270; J1170; J2405; J7040; J7120; 96361; 96374; 96375; 96376; 99284; G0378; J7030

== ENCOUNTER 2019-04-21 17:25 | Emergency (ER) | payer MEDICAID ==
[2019-04-21] MEDS ORDERED: Ondansetron 4 MG/2 ML SDV IVPUSH ONE (18:24)
[2019-04-21] MEDS ORDERED: Sodium Chloride 0.9% 1,000 ML IV ONE (18:24)
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
[2019-04-21 19:14] LABS: BLOOD UREA NITROGEN,BUN 5 mg/dL (7.0-18.0); CARBON DIOXIDE,CO2 25.1 mmol/L (21.0-32.0); CHLORIDE,CL 102 mmol/L (98-107); GLUCOSE RANDOM 81 mg/dL (74-106); LIPASE 56 U/L (73-393); POTASSIUM,K 3.5 mmol/L (3.5-5.1); SODIUM,NA 138 mmol/L (136-145)
[2019-04-21 19:38] VITALS: BP 96/46; PULSE 78
== END 2019-04-21 19:46 | disposition home or self-care (01) ==
LOC: MW.ED 17:25
DX: R11.2 Nausea with vomiting, unspecified (principal); Z91.040 Latex allergy status; Z88.5 Allergy status to narcotic agent; Z88.8 Allergy status to other drugs, medicaments and biological substances; Z91.048 Other nonmedicinal substance allergy status
CPT/HCPCS: 36415; 80053; 83690; 85025; 96374; 99284; J2405; J7040; 99283

== ENCOUNTER 2019-08-30 15:50 | Emergency (ER) | payer MEDICAID, OTHER ==
[2019-08-30] MEDS ORDERED: Sodium Chloride 0.9% 1,000 ML IV ONE (16:42)
[2019-08-30] MEDS ORDERED: Prochlorperazine 10 MG in Sodium Chloride 0.9% 50 ML IV ONE (16:42)
[2019-08-30] MEDS ORDERED: diphenhydrAMINE 50 MG/ML SDV IVPUSH ONE (16:43)
[2019-08-30] MEDS ORDERED: Ketorolac 30 MG/ML SDV IVPUSH ONE (16:50)
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
[2019-08-30] MEDS ORDERED: Prochlorperazine 10 MG/2 ML SDV IVPUSH ONE ×2 (17:00)
[2019-08-30] MEDS ORDERED: Prochlorperazine 10 MG/2 ML SDV IM ONE (17:00)
[2019-08-30 18:43] VITALS: BP 108/69; PULSE 84
== END 2019-08-30 18:43 | disposition home or self-care (01) ==
LOC: MW.ED 15:50
DX: G43.909 Migraine, unspecified, not intractable, without status migrainosus (principal); Z79.899 Other long term (current) drug therapy; Z88.8 Allergy status to other drugs, medicaments and biological substances
CPT/HCPCS: 81003; 81025; 96361; 96374; 96375; 99283; J0780; J1200; J1885; J7030

== ENCOUNTER 2020-03-16 19:58 | Emergency (ER) | payer MEDICAID ==
[2020-03-16] MEDS ORDERED: Ondansetron 4 MG/2 ML SDV IVPUSH ONE (20:47)
[2020-03-16] MEDS ORDERED: Sodium Chloride 0.9% 1,000 ML IV ONE (20:47)
[2020-03-16] MEDS ORDERED: Ketorolac 30 MG/ML SDV IVPUSH ONE (20:48)
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
[2020-03-16 21:44] LABS: BLOOD UREA NITROGEN,BUN 11 mg/dL (7.0-18.0); CARBON DIOXIDE,CO2 25.8 mmol/L (21.0-32.0); CHLORIDE,CL 102 mmol/L (98-107); GLUCOSE RANDOM 87 mg/dL (74-106); POTASSIUM,K 3.5 mmol/L (3.5-5.1); SODIUM,NA 137 mmol/L (136-145)
--- NOTE | 2020-03-16 22:01 | CT ---
Indication: Right flank pain. History of stones. Technique: Multiple contiguous axial images were obtained from the lung bases through the symphysis pubis without intravenous contrast enhancement. Please note that all CT scans at this facility use dose modulation, iterative reconstruction, and/or weight-based dosing when appropriate to reduce radiation dose to as low as reasonably achievable. Comparison: None Findings: The lung bases are clear. Heart is normal in size. No pericardial effusion is identified. Postsurgical changes of cholecystectomy are identified. The unenhanced liver, spleen, pancreas, adrenals, and kidneys are normal. No intrahepatic biliary ductal dilatation is identified. No hydronephrosis identified. No renal calculi identified. No hydronephrosis is identified. No ureteral calculi are identified. In the pelvis, the uterus is grossly normal. The urinary bladder is grossly normal. A questionable prominent left ovarian follicles identified. The small and large bowel are normal in caliber. A small to moderate amount of stool is identified within the colon. The appendix is normal in caliber. No inflammatory changes are identified in the right lower quadrant. No free air or free fluid is identified within the abdomen or pelvis. The aorta is normal in caliber. No lytic or blastic lesions of the spine are identified. Impression: No hydronephrosis or hydroureter. No renal/ureteral calculi. No evidence of appendicitis. Postsurgical changes of a cholecystectomy Please note that all CT scans at this facility use dose modulation, iterative reconstruction, and/or weight-based dosing when appropriate to reduce radiation dose to as low as reasonably achievable. Dictated by Ayleen Dobson MD @ Mar 16 2020 9:57PM Signed by Dr. Ayleen Dobson @ Mar 16 2020 9:59PM
[2020-03-17 02:01] VITALS: BP 101/52; PULSE 71
== END 2020-03-16 22:55 | disposition home or self-care (01) ==
LOC: MW.ED 19:58
DX: R10.9 Unspecified abdominal pain (principal); Z91.048 Other nonmedicinal substance allergy status; Z88.5 Allergy status to narcotic agent; Z88.8 Allergy status to other drugs, medicaments and biological substances; Z91.040 Latex allergy status
CPT/HCPCS: 36415; 74176; 80053; 81001; 81025; 85025; 96374; 96375; 99284; J1885; J2405; J7030; 99283

== ENCOUNTER 2020-08-04 10:06 | Emergency (ER) | payer MEDICAID ==
[2020-08-04] MEDS ORDERED: Ketorolac 60 MG/2 ML SDV IM ONE (10:29)
--- NOTE | 2020-08-04 11:31 | CR ---
Indication: Pain. Patient states she dislocated and reduced her shoulder this a.m. Technique: Left shoulder 3 views. Comparison: None. Findings: No acute fracture or dislocation. Joint spaces are well preserved. The visualized lungs are clear. Soft tissues are unremarkable. Impression: No acute findings. Dictated by Sandra Rush MD @ Aug 04 2020 11:27AM Signed by Dr. Sandra Rush @ Aug 04 2020 11:29AM
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
[2020-08-04 13:35] VITALS: BP 107/64; PULSE 73
== END 2020-08-04 13:30 | disposition home or self-care (01) ==
LOC: MW.ED 10:06
DX: S49.92XA Unspecified injury of left shoulder and upper arm, initial encounter (principal); Z91.048 Other nonmedicinal substance allergy status; Z91.040 Latex allergy status; Z88.5 Allergy status to narcotic agent; Z88.8 Allergy status to other drugs, medicaments and biological substances; Z91.018 Allergy to other foods; Z79.899 Other long term (current) drug therapy; X58.XXXA Exposure to other specified factors, initial encounter
CPT/HCPCS: 73030; 96372; 99283; J1885

== ENCOUNTER 2020-08-11 10:20 | Emergency (ER) | payer MEDICAID ==
[2020-08-11] MEDS ORDERED: Sodium Chloride 0.9% 2.5 ML Syringe FLUSH PRN (10:43)
[2020-08-11] MEDS ORDERED: Metoclopramide 10 MG/2 ML SDV IVPUSH ONE (10:43)
[2020-08-11] MEDS ORDERED: Sodium Chloride 0.9% 10 ML Syringe FLUSH PRN (10:43)
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
[2020-08-11 10:56] VITALS: BP 141/71; PULSE 103
== END 2020-08-11 11:15 | disposition left against medical advice (07) ==
LOC: MW.ED 10:20
DX: G43.909 Migraine, unspecified, not intractable, without status migrainosus (principal); Z91.048 Other nonmedicinal substance allergy status; Z91.040 Latex allergy status; Z88.5 Allergy status to narcotic agent; Z88.8 Allergy status to other drugs, medicaments and biological substances; Z88.1 Allergy status to other antibiotic agents; Z91.018 Allergy to other foods
CPT/HCPCS: 81025; 96374; 99283; J2765; 99282

== ENCOUNTER 2020-08-20 20:40 | Emergency (ER) | payer MEDICAID ==
[2020-08-20] MEDS ORDERED: Albuterol/Ipratropium 3.0-0.5 MG/3 ML Neb Soln ONE (20:46)
[2020-08-20] MEDS ORDERED: methylPREDNISolone Sodium Succinate 125 MG/2 ML SDV ONE (20:46)
[2020-08-20] MEDS ORDERED: Albuterol/Ipratropium 3.0-0.5 MG/3 ML Neb Soln NEB ONE (20:46)
[2020-08-20] MEDS ORDERED: diphenhydrAMINE 50 MG/ML SDV ONE (20:46)
[2020-08-20] MEDS ORDERED: diphenhydrAMINE 50 MG/ML SDV IVPUSH ONE (20:47)
[2020-08-20] MEDS ORDERED: Sodium Chloride 0.9% 2.5 ML Syringe FLUSH PRN (20:47)
[2020-08-20] MEDS ORDERED: methylPREDNISolone Sodium Succinate 125 MG/2 ML SDV IVPUSH ONE (20:47)
[2020-08-20] MEDS ORDERED: Sodium Chloride 0.9% 10 ML Syringe FLUSH PRN (20:47)
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
[2020-08-21 01:30] VITALS: BP 108/66; PULSE 95
== END 2020-08-20 22:38 | disposition home or self-care (01) ==
LOC: MW.ED 20:40
DX: L50.0 Allergic urticaria (principal); R07.89 Other chest pain; Z88.8 Allergy status to other drugs, medicaments and biological substances; Z91.040 Latex allergy status; Z88.5 Allergy status to narcotic agent; Z91.018 Allergy to other foods
CPT/HCPCS: 94640; 96374; 96375; 99283; J1200; J2930; J7620-GY

== ENCOUNTER 2021-01-03 09:00 | Emergency (ER) | payer MEDICAID ==
[2021-01-03] MEDS ORDERED: Sodium Chloride 0.9% 2.5 ML Syringe FLUSH PRN (09:24)
[2021-01-03] MEDS ORDERED: Sodium Chloride 0.9% 1,000 ML IV ONE (09:24)
[2021-01-03] MEDS ORDERED: Sodium Chloride 0.9% 10 ML Syringe FLUSH PRN (09:24)
[2021-01-03] MEDS ORDERED: Famotidine 20 MG/2 ML SDV IVPUSH ONE (09:24)
[2021-01-03] MEDS ORDERED: methylPREDNISolone Sodium Succinate 125 MG/2 ML SDV IVPUSH ONE (09:24)
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
[2021-01-03 10:41] LABS: BLOOD UREA NITROGEN,BUN 7 mg/dL (7.0-18.0); CARBON DIOXIDE,CO2 25.3 mmol/L (21.0-32.0); CHLORIDE,CL 103 mmol/L (98-107); GLUCOSE RANDOM 89 mg/dL (74-106); POTASSIUM,K 3.4 mmol/L (3.5-5.1); SODIUM,NA 139 mmol/L (136-145)
[2021-01-03 10:55] VITALS: BP 100/51; PULSE 62
== END 2021-01-03 10:55 | disposition home or self-care (01) ==
LOC: MW.ED 09:00
DX: T78.40XA Allergy, unspecified, initial encounter (principal); Z88.8 Allergy status to other drugs, medicaments and biological substances; Z88.5 Allergy status to narcotic agent; Z91.018 Allergy to other foods; Z91.048 Other nonmedicinal substance allergy status; Z91.040 Latex allergy status; Z88.1 Allergy status to other antibiotic agents
CPT/HCPCS: 36415; 80053; 84443; 85025; 96374; 96375; 99284; J2930; J3490; J7030

== ENCOUNTER 2021-02-12 15:05 | Emergency (ER) | payer MEDICAID ==
[2021-02-12] MEDS ORDERED: Sodium Chloride 0.9% 2.5 ML Syringe FLUSH PRN (16:51)
[2021-02-12] MEDS ORDERED: Sodium Chloride 0.9% 10 ML Syringe FLUSH PRN (16:51)
[2021-02-12] MEDS ORDERED: Ondansetron 4 MG/2 ML SDV IVPUSH ONE (16:53)
[2021-02-12] MEDS ORDERED: Ketorolac 30 MG/ML SDV IVPUSH ONE (16:53)
[2021-02-12] MEDS ORDERED: Sodium Chloride 0.9% 1,000 ML IV ONE (16:53)
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
[2021-02-12 17:29] LABS: BLOOD UREA NITROGEN,BUN 11 mg/dL (7.0-18.0); CHLORIDE,CL 102 mmol/L (98-107); GLUCOSE RANDOM 86 mg/dL (74-106); POTASSIUM,K 3.9 mmol/L (3.5-5.1); SODIUM,NA 138 mmol/L (136-145)
--- NOTE | 2021-02-12 18:40 | CT ---
Indication: Right flank pain. Technique: Multiple contiguous axial images were obtained from the lung bases through the symphysis pubis without intravenous contrast enhancement. Please note that all CT scans at this facility use dose modulation, iterative reconstruction, and/or weight-based dosing when appropriate to reduce radiation dose to as low as reasonably achievable. Comparison: March 16, 2020. Findings: The lung bases are clear. The heart is normal in size. No pericardial effusion is identified. The liver measures 17.1 centimeters in maximum dimension. No intrahepatic biliary ductal dilatation is identified. Postsurgical changes of the cholecystectomy are identified. The unenhanced spleen, pancreas, adrenals, and kidneys are normal. No hydronephrosis is identified. A tiny nonobstructing left renal calculus is identified. In the pelvis, the uterus is normal. The urinary bladder is grossly normal. The small and large bowel are normal in caliber. No free air or free fluid is identified within the abdomen or pelvis. The appendix is identified and is normal in caliber. The aorta is normal in caliber. No lytic or blastic lesions are seen. Impression: No hydronephrosis or hydroureter. Nonobstructing left renal calculus is identified. No evidence of appendicitis. Postsurgical changes cholecystectomy Please note that all CT scans at this facility use dose modulation, iterative reconstruction, and/or weight-based dosing when appropriate to reduce radiation dose to as low as reasonably achievable. Dictated by Ayleen Dobson MD @ 02/12/2021 6:38:07 PM (Electronically Signed)
[2021-02-12 19:09] VITALS: BP 111/57; PULSE 71
== END 2021-02-12 19:10 | disposition home or self-care (01) ==
LOC: MW.ED 15:05
DX: R10.31 Right lower quadrant pain (principal); Z88.8 Allergy status to other drugs, medicaments and biological substances; Z91.048 Other nonmedicinal substance allergy status; Z91.040 Latex allergy status; Z88.5 Allergy status to narcotic agent; Z91.018 Allergy to other foods; Z88.1 Allergy status to other antibiotic agents
CPT/HCPCS: 36415; 74176; 80053; 81001; 81025; 85025; 96374; 96375; 99284; J1885; J2405; J7030

== ENCOUNTER 2021-06-11 19:16 | Emergency (ER) | payer MEDICAID ==
[2021-06-11] MEDS ORDERED: Ketorolac 30 MG/ML SDV IVPUSH ONE (19:32)
[2021-06-11] MEDS ORDERED: Ondansetron 4 MG/2 ML SDV IVPUSH ONE (19:32)
[2021-06-11] MEDS ORDERED: Sodium Chloride 0.9% 1,000 ML IV ONE (19:32)
[2021-06-11] MEDS ORDERED: LORazepam 2 MG/ML SDV IVPUSH ONE (19:32)
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
[2021-06-11 22:09] VITALS: BP 124/62; PULSE 78
== END 2021-06-11 21:50 | disposition home or self-care (01) ==
LOC: MW.ED 19:16
DX: G43.909 Migraine, unspecified, not intractable, without status migrainosus (principal); Z91.048 Other nonmedicinal substance allergy status; Z91.040 Latex allergy status; Z88.5 Allergy status to narcotic agent; Z91.018 Allergy to other foods; Z88.8 Allergy status to other drugs, medicaments and biological substances; Z79.899 Other long term (current) drug therapy
CPT/HCPCS: 96374; 96375; 99283; J1885; J2060; J2405; J7030

== ENCOUNTER 2021-08-31 17:39 | Emergency (ER) | payer MEDICAID ==
[2021-08-31] MEDS ORDERED: methylPREDNISolone Sodium Succinate 125 MG/2 ML SDV IVPUSH ONE (18:03)
[2021-08-31] MEDS ORDERED: EPINEPHrine 1 MG/1 ML Amp SUBCUT ONE (18:03)
[2021-08-31] MEDS ORDERED: EPINEPHrine 1 MG/ML SDV ONE (18:13)
[2021-08-31] MEDS ORDERED: diphenhydrAMINE 50 MG/ML SDV IVPUSH ONE (20:25)
[2021-08-31] MEDS ORDERED: traMADol 50 MG Tab PO ONE (20:25)
[2021-08-31 21:07] VITALS: BP 103/60; PULSE 94
== END 2021-08-31 21:08 | disposition home or self-care (01) ==
LOC: MW.ED 17:39
DX: T78.40XA Allergy, unspecified, initial encounter (principal); Z91.040 Latex allergy status; Z88.5 Allergy status to narcotic agent; Z91.048 Other nonmedicinal substance allergy status; Z91.018 Allergy to other foods
CPT/HCPCS: 93005; 96372; 96374; 96375; 99283; A9270; J0171; J1200; J2930; 93010; 99284

== ENCOUNTER 2021-10-22 17:15 | Emergency (ER) | payer MEDICAID ==
[2021-10-22] MEDS ORDERED: methylPREDNISolone Sodium Succinate 125 MG/2 ML SDV IVPUSH ONE (17:18)
[2021-10-22] MEDS ORDERED: Sodium Chloride 0.9% 1,000 ML IV ONE (17:18)
[2021-10-22] MEDS ORDERED: Famotidine 20 MG/2 ML SDV IVPUSH ONE (17:22)
[2021-10-22 17:58] LABS: BLOOD UREA NITROGEN,BUN 11 mg/dL (7.0-18.0); CHLORIDE,CL 100 mmol/L (98-107); GLUCOSE RANDOM 103 mg/dL (74-106); POTASSIUM,K 3.9 mmol/L (3.5-5.1); SODIUM,NA 137 mmol/L (136-145)
[2021-10-22 19:19] VITALS: BP 106/73; PULSE 71
== END 2021-10-22 19:00 | disposition home or self-care (01) ==
LOC: MW.ED 17:15
DX: T78.40XA Allergy, unspecified, initial encounter (principal); Z90.49 Acquired absence of other specified parts of digestive tract; Z79.899 Other long term (current) drug therapy; Z91.048 Other nonmedicinal substance allergy status; Z91.040 Latex allergy status; Z88.6 Allergy status to analgesic agent; Z91.018 Allergy to other foods; Z88.8 Allergy status to other drugs, medicaments and biological substances
CPT/HCPCS: 36415; 71045; 80053; 85025; 96374; 96375; 99283; J2930; J3490; J7030

== ENCOUNTER 2021-12-20 17:13 | Observation (INO) | payer MEDICAID ==
[2021-12-20] MEDS ORDERED: diphenhydrAMINE 50 MG/ML SDV IVPUSH ONE (17:19)
[2021-12-20] MEDS ORDERED: Sodium Chloride 0.9% 1,000 ML IV ONE (17:19)
[2021-12-20] MEDS ORDERED: Famotidine 20 MG/2 ML SDV IVPUSH ONE (17:19)
[2021-12-20] MEDS ORDERED: methylPREDNISolone Sodium Succinate 125 MG/2 ML SDV IVPUSH ONE (17:19)
[2021-12-20 18:24] LABS: CARBON DIOXIDE,CO2 22.7 mmol/L (21.0-32.0); POTASSIUM,K 3.2 mmol/L (3.5-5.1)
[2021-12-20] MEDS ORDERED: Acetaminophen 325 MG Tab PO PRN (23:07)
[2021-12-20] MEDS ORDERED: Ondansetron 4 MG/2 ML SDV IVPUSH PRN (23:08)
[2021-12-21] MEDS ORDERED: diphenhydrAMINE 50 MG Cap PO PRN (00:51)
[2021-12-21 09:20] VITALS: BP 110/59; PULSE 74
== END 2021-12-21 14:58 | disposition home or self-care (01) ==
LOC: MW.ED 17:13 → MW.MS 21:09
PROVIDERS: ADMIT Internal Medicine; ATTEND Internal Medicine
DX: T78.2XXA Anaphylactic shock, unspecified, initial encounter (principal); T44.5X1A Poisoning by predominantly beta-adrenoreceptor agonists, accidental (unintentional), initial encounter; Z90.49 Acquired absence of other specified parts of digestive tract; E06.3 Autoimmune thyroiditis; Z91.048 Other nonmedicinal substance allergy status; Z91.040 Latex allergy status; Z88.5 Allergy status to narcotic agent; Z91.018 Allergy to other foods; Z88.8 Allergy status to other drugs, medicaments and biological substances; Z79.899 Other long term (current) drug therapy; Z79.890 Hormone replacement therapy; L50.9 Urticaria, unspecified
CPT/HCPCS: 36415; 80053; 82947; 85025; 93005; 93010; 96361; 96374; 96375; 99218; 99284; 99285-25; A9270-GY; G0378; J1200; J2405; J2930; J3490; J7030

== ENCOUNTER 2022-03-09 14:45 | Emergency (ER) | payer MEDICAID ==
[2022-03-09] MEDS ORDERED: Ketorolac 60 MG/2 ML SDV IM ONE (17:16)
== END 2022-03-09 17:51 | disposition home or self-care (01) ==
LOC: MW.ED 14:45
DX: R07.89 Other chest pain (principal)
CPT/HCPCS: 71045; 96372; 99285; J1885

== ENCOUNTER 2022-03-28 07:08 | Emergency (ER) | payer MEDICAID ==
[2022-03-28] MEDS ORDERED: Sodium Chloride 0.9% 2.5 ML Syringe FLUSH PRN (07:54)
[2022-03-28] MEDS ORDERED: Sodium Chloride 0.9% 10 ML Syringe FLUSH PRN (07:54)
[2022-03-28] MEDS ORDERED: Sodium Chloride 0.9% 1,000 ML IV ONE ×2 (07:55→09:03)
[2022-03-28] MEDS ORDERED: Famotidine 20 MG/2 ML SDV IVPUSH ONE (07:55)
[2022-03-28] MEDS ORDERED: Alum Hydro/Mag Hydro/Simeth XS 15 ML, Lidocaine 2% 5 ML PO ONE ×2 (07:56)
[2022-03-28 08:24] LABS: CARBON DIOXIDE,CO2 27.1 mmol/L (21.0-32.0); POTASSIUM,K 3.6 mmol/L (3.5-5.1)
[2022-03-28] MEDS ORDERED: LORazepam 2 MG/ML SDV IVPUSH ONE (09:04)
[2022-03-28] MEDS ORDERED: Ondansetron 4 MG/2 ML SDV IVPUSH ONE (09:12)
[2022-03-28 10:47] VITALS: BP 109/63; PULSE 69
== END 2022-03-28 10:45 | disposition home or self-care (01) ==
LOC: MW.ED 07:08
DX: R10.84 Generalized abdominal pain (principal); R10.13 Epigastric pain; Z91.040 Latex allergy status; Z91.048 Other nonmedicinal substance allergy status; Z88.5 Allergy status to narcotic agent; Z88.8 Allergy status to other drugs, medicaments and biological substances; Z79.899 Other long term (current) drug therapy
CPT/HCPCS: 36415; 80053; 80305; 81001; 81025; 83605; 83690; 85025; 85610; 96361; 96374; 96375; 99284; A9270; J2060; J2405; J3490; J7030

== ENCOUNTER 2022-06-13 18:43 | Emergency (ER) | payer MEDICAID ==
[2022-06-13] MEDS ORDERED: Ketorolac 30 MG/ML SDV IVPUSH ONE (19:31)
[2022-06-13] MEDS ORDERED: Ondansetron 4 MG/2 ML SDV IVPUSH ONE (19:31)
[2022-06-13 19:41] LABS: CARBON DIOXIDE,CO2 26.2 mmol/L (21.0-32.0); POTASSIUM,K 3.6 mmol/L (3.5-5.1)
[2022-06-13 21:06] VITALS: BP 100/58; PULSE 72
== END 2022-06-13 21:05 | disposition home or self-care (01) ==
LOC: MW.ED 18:43
DX: N83.201 Unspecified ovarian cyst, right side (principal); Z91.048 Other nonmedicinal substance allergy status; Z91.040 Latex allergy status; Z88.6 Allergy status to analgesic agent; Z91.018 Allergy to other foods; Z88.8 Allergy status to other drugs, medicaments and biological substances; Z79.899 Other long term (current) drug therapy; Z90.49 Acquired absence of other specified parts of digestive tract
CPT/HCPCS: 36415; 76830; 80053; 81003; 81025; 85025; 96374; 96375; 99284; J1885; J2405

== ENCOUNTER 2022-08-22 09:17 | Emergency (ER) | payer BC, MEDICAID ==
[2022-08-22] MEDS ORDERED: Sodium Chloride 0.9% 1,000 ML IV ONE (09:20)
[2022-08-22] MEDS ORDERED: methylPREDNISolone Sodium Succinate 125 MG/2 ML SDV IVPUSH ONE (09:20)
[2022-08-22] MEDS ORDERED: Famotidine 20 MG/2 ML SDV IVPUSH ONE (09:25)
[2022-08-22] MEDS ORDERED: diphenhydrAMINE 50 MG/ML SDV IVPUSH ONE (09:44)
[2022-08-22 11:54] VITALS: BP 107/63; PULSE 77
== END 2022-08-22 11:53 | disposition home or self-care (01) ==
LOC: MW.ED 09:17
DX: T78.2XXA Anaphylactic shock, unspecified, initial encounter (principal); Z91.048 Other nonmedicinal substance allergy status; Z91.040 Latex allergy status; Z88.5 Allergy status to narcotic agent; Z91.018 Allergy to other foods; Z88.8 Allergy status to other drugs, medicaments and biological substances
CPT/HCPCS: 96361; 96374; 96375; 99285; J1200; J2930; J3490; J7030; 99284

== ENCOUNTER 2022-08-22 18:18 | Observation (INO) | payer BC, MEDICAID ==
[2022-08-22] MEDS ORDERED: Sodium Chloride 0.9% 10 ML Syringe FLUSH PRN (18:28)
[2022-08-22] MEDS ORDERED: Sodium Chloride 0.9% 2.5 ML Syringe FLUSH PRN (18:28)
[2022-08-22] MEDS ORDERED: Sodium Chloride 0.9% 1,000 ML IV ONE (18:29)
[2022-08-22 19:35] LABS: BLOOD UREA NITROGEN,BUN 6 mg/dL (7.0-18.0); CARBON DIOXIDE,CO2 20.1 mmol/L (21.0-32.0); CHLORIDE,CL 104 mmol/L (98-107); GLUCOSE RANDOM 187 mg/dL (74-106); POTASSIUM,K 3.8 mmol/L (3.5-5.1); SODIUM,NA 136 mmol/L (136-145)
[2022-08-22 19:36] LABS: ESTIMATED GFR 89 mL/min (>60)
[2022-08-22] MEDS ORDERED: Ondansetron 4 MG/2 ML SDV IVPUSH ONE (19:43)
[2022-08-22 22:14] LABS: CORONAVIRUS COVID-19 NAA NEGATIVE (NEGATIVE); INFLUENZA A NAA NEGATIVE (NEGATIVE); INFLUENZA B NAA NEGATIVE (NEGATIVE)
[2022-08-22] MEDS ORDERED: Acetaminophen 325 MG Tab PO PRN (22:35)
[2022-08-23 04:41] VITALS: PULSE 61
[2022-08-23 09:29] VITALS: BP 99/54
== END 2022-08-23 12:30 | disposition home or self-care (01) ==
LOC: MW.ED 18:18 → MW.MS 20:41
PROVIDERS: ADMIT Internal Medicine; ATTEND Internal Medicine
DX: L50.0 Allergic urticaria (principal); T78.04XA Anaphylactic reaction due to fruits and vegetables, initial encounter; D64.9 Anemia, unspecified; G43.909 Migraine, unspecified, not intractable, without status migrainosus; G40.909 Epilepsy, unspecified, not intractable, without status epilepticus; F41.9 Anxiety disorder, unspecified; F32.A Depression, unspecified; F43.10 Post-traumatic stress disorder, unspecified; Z88.5 Allergy status to narcotic agent; Z88.8 Allergy status to other drugs, medicaments and biological substances; Z91.040 Latex allergy status; Z91.048 Other nonmedicinal substance allergy status; Z79.890 Hormone replacement therapy; Z79.899 Other long term (current) drug therapy; Z20.822 Contact with and (suspected) exposure to COVID-19
CPT/HCPCS: 0240U; 36415; 71045; 80053; 80305; 81003; 81025; 85025; 96361; 96374; 99285; A9270; G0378; J2405; J3490; J7030; 99284

== ENCOUNTER 2022-11-18 20:53 | Emergency (ER) | payer MEDICAID ==
[2022-11-18] MEDS ORDERED: Dexamethasone 10 MG/ML SDV PO ONE (22:33)
[2022-11-18] MEDS ORDERED: Cetirizine 10 MG Tab PO ONE (22:33)
[2022-11-18 23:34] VITALS: BP 109/60; PULSE 67
== END 2022-11-18 23:33 | disposition home or self-care (01) ==
LOC: MW.ED 20:53
DX: L50.9 Urticaria, unspecified (principal); Z91.040 Latex allergy status; Z91.048 Other nonmedicinal substance allergy status; Z88.5 Allergy status to narcotic agent; Z91.018 Allergy to other foods; Z88.8 Allergy status to other drugs, medicaments and biological substances
CPT/HCPCS: 93005; 99283; A9270; J8540; 93010

== ENCOUNTER 2022-12-25 11:55 | Emergency (ER) | payer BC, MEDICAID ==
[2022-12-25] MEDS ORDERED: diphenhydrAMINE 50 MG/ML SDV IVPUSH ONE (13:04)
[2022-12-25] MEDS ORDERED: Sodium Chloride 0.9% 1,000 ML IV ONE (13:04)
[2022-12-25] MEDS ORDERED: Sodium Chloride 0.9% 2.5 ML Syringe FLUSH PRN (13:04)
[2022-12-25] MEDS ORDERED: Sodium Chloride 0.9% 10 ML Syringe FLUSH PRN (13:04)
[2022-12-25] MEDS ORDERED: Metoclopramide 10 MG/2 ML SDV IVPUSH ONE (13:04)
[2022-12-25 13:30] VITALS: BP 111/63; PULSE 80
[2022-12-25 13:32] LABS: BASOPHILS ABSOLUTE AUTO 0.1 K/uL (0.0-0.1); BASOPHILS PERCENT AUTO 0.9 % (0.0-1.5); EOSINOPHILS ABSOLUTE AUTO 0.2 K/uL (0.0-0.7); EOSINOPHILS PERCENT AUTO 2.3 % (0.0-7.0); HEMOGLOBIN 10.8 g/dL (12.0-16.0); LYMPHOCYTES ABSOLUTE AUTO 1.8 K/uL (0.6-2.4); LYMPHOCYTES PERCENT AUTO 25.7 % (16.0-40.0); MEAN CORPUSCULAR HEMOGLOBIN 25.5 pg (27.0-32.0); MEAN CORPUSCULAR HGB CONC 32.7 g/dL (31.0-37.0); MEAN CORPUSCULAR VOLUME 77.8 fL (80.0-98.0); MONOCYTES ABSOLUTE AUTO 0.6 K/uL (0.0-0.8); MONOCYTES PERCENT AUTO 9.2 % (0.0-15.0); NEUTROPHILS ABSOLUTE AUTO 4.3 K/uL (1.4-5.7); NEUTROPHILS PERCENT AUTO 61.9 % (48.0-80.0); NRBC ABSOLUTE 0 K/uL; PLATELET COUNT,PLT 281 K/uL (150-400); RED BLOOD CELL COUNT 4.24 M/uL (4.30-5.90); WHITE BLOOD CELL COUNT,WBC 6.97 K/uL (4.0-11.0)
[2022-12-25 13:53] LABS: CALCIUM 8.8 mg/dL (8.5-10.1); CARBON DIOXIDE,CO2 26.3 mmol/L (21.0-32.0); CREATININE 0.8 mg/dL (0.6-1.0); EST CRCL DRUG DOSING (CG) 82.06 mL/min; POTASSIUM,K 3.8 mmol/L (3.5-5.1)
== END 2022-12-25 13:50 | disposition home or self-care (01) ==
LOC: MW.ED 11:55
DX: G43.909 Migraine, unspecified, not intractable, without status migrainosus (principal); Z91.048 Other nonmedicinal substance allergy status; Z88.8 Allergy status to other drugs, medicaments and biological substances; Z91.040 Latex allergy status; Z88.5 Allergy status to narcotic agent; Z91.018 Allergy to other foods; Z88.1 Allergy status to other antibiotic agents
CPT/HCPCS: 36415; 80048; 83735; 84703; 85025; 96374; 96375; 99283; J1200; J2765; J3490; J7030; 99284

== ENCOUNTER 2023-02-13 11:12 | Emergency (ER) | payer BC, MEDICAID ==
[2023-02-13] MEDS ORDERED: Acetaminophen 325 MG Tab PO ONE (11:17)
[2023-02-13] MEDS ORDERED: Ketorolac 30 MG/ML SDV IM ONE (13:11)
[2023-02-13 13:59] VITALS: BP 98/55; PULSE 70
== END 2023-02-13 13:59 | disposition home or self-care (01) ==
LOC: MW.ED 11:12
DX: M79.671 Pain in right foot (principal); Z79.899 Other long term (current) drug therapy; Z88.5 Allergy status to narcotic agent; Z88.6 Allergy status to analgesic agent; Z88.8 Allergy status to other drugs, medicaments and biological substances; Z91.018 Allergy to other foods; Z91.048 Other nonmedicinal substance allergy status; Z91.040 Latex allergy status
CPT/HCPCS: 73562; 73590; 73610; 73630; 81025; 96372; 99284; A9270; J1885; 99283

== ENCOUNTER 2023-04-15 11:30 | Emergency (ER) | payer MEDICAID ==
[2023-04-15 12:31] VITALS: BP 101/58; PULSE 78
== END 2023-04-15 12:32 | disposition home or self-care (01) ==
LOC: MW.ED 11:30
DX: M79.641 Pain in right hand (principal); Z88.5 Allergy status to narcotic agent; Z91.040 Latex allergy status; Z88.8 Allergy status to other drugs, medicaments and biological substances; Z91.048 Other nonmedicinal substance allergy status; Z91.018 Allergy to other foods; Z79.899 Other long term (current) drug therapy; Z90.49 Acquired absence of other specified parts of digestive tract; W22.8XXA Striking against or struck by other objects, initial encounter
CPT/HCPCS: 73130-26-RT; 73130-RT; 99283

== ENCOUNTER 2023-06-19 09:18 | Emergency (ER) | payer OTHER, MEDICAID ==
[2023-06-19] MEDS ORDERED: Sodium Chloride 0.9% 1,000 ML IV ONE ×2 (09:30→10:09)
[2023-06-19] MEDS ORDERED: Sodium Chloride 0.9% 10 ML Syringe FLUSH PRN (09:30)
[2023-06-19] MEDS ORDERED: cefTRIAXone 1 GM in Sodium Chloride 0.9% 50 ML IV ONE (09:30)
[2023-06-19] MEDS ORDERED: Sodium Chloride 0.9% 2.5 ML Syringe FLUSH PRN (09:30)
[2023-06-19] MEDS ORDERED: Ondansetron 4 MG/2 ML SDV IVPUSH ONE (09:32)
[2023-06-19 09:49] LABS: BASOPHILS ABSOLUTE AUTO 0.06 K/uL (0.00-0.20); BASOPHILS PERCENT AUTO 0.5 % (0.0-1.0); EOSINOPHILS ABSOLUTE AUTO 0.03 K/uL (0.00-0.45); EOSINOPHILS PERCENT AUTO 0.2 % (0.0-6.0); HEMATOCRIT 27.9 % (37.0-47.0); HEMOGLOBIN 8.7 g/dL (12.0-16.0); IMMATURE GRAN ABSOLUTE AUTO 0.04 K/uL (0.00-0.05); IMMATURE GRAN PERCENT AUTO 0.3 % (0.0-0.4); LYMPHOCYTES ABSOLUTE AUTO 0.55 K/uL (1.00-4.80); LYMPHOCYTES PERCENT AUTO 4.4 % (24.0-44.0); MEAN CORPUSCULAR HEMOGLOBIN 20.9 pg (28.0-32.0); MEAN PLATELET VOLUME 10.5 fL (9.4-12.3); MONOCYTES ABSOLUTE AUTO 0.65 K/uL (0.00-0.80); MONOCYTES PERCENT AUTO 5.2 % (0.0-8.0); NEUTROPHILS ABSOLUTE AUTO 11.24 K/uL (1.80-7.70); NEUTROPHILS PERCENT AUTO 89.4 % (41.0-71.0); PLATELET COUNT,PLT 316 K/uL (150-400); RED BLOOD CELL COUNT 4.16 M/uL (4.10-5.30); WHITE BLOOD CELL COUNT,WBC 12.57 K/uL (3.9-11.3)
[2023-06-19 10:00] LABS: ALANINE AMINOTRANSFERASE,ALT 18 IU/L (14-63); ALBUMIN 4.1 g/dL (3.4-5.0); ALKALINE PHOSPHATASE 75 U/L (46-116); ASPARTATE AMNIOTRANSFERASE,AST 19 IU/L (15-37); BILIRUBIN TOTAL 0.5 mg/dL (0.2-1.0); BLOOD UREA NITROGEN,BUN 14 mg/dL (7.0-18.0); C-REACTIVE PROTEIN 0.13 mg/dL (<0.3); CARBON DIOXIDE,CO2 19.4 mmol/L (21.0-32.0); CHLORIDE,CL 104 mmol/L (98-107); CREATININE 0.8 mg/dL (0.6-1.0); EST CRCL DRUG DOSING (CG) 79.52 mL/min; GLUCOSE RANDOM 94 mg/dL (74-106); LIPASE 19 U/L (16-77); POTASSIUM,K 3.7 mmol/L (3.5-5.1); PROTEIN TOTAL,TP 8.3 g/dL (6.4-8.2); SODIUM,NA 139 mmol/L (136-145)
[2023-06-19 10:02] LABS: LACTIC ACID 1.5 mmol/L (0.4-2.0)
[2023-06-19 10:10] LABS: ESTIMATED GFR 102 mL/min (>60)
[2023-06-19 10:19] LABS: MEAN CORPUSCULAR VOLUME 67.1 fL (83.0-99.0)
[2023-06-19 10:20] LABS: MEAN CORPUSCULAR HGB CONC 31.2 g/dL (32.0-36.0)
[2023-06-19] MEDS ORDERED: Iopamidol 755 MG/ML 500 ML Multipack Bottle IVPUSH STA (11:20)
[2023-06-19 11:53] LABS: APPEARANCE,URINE CLEAR; BILIRUBIN,URINE NEGATIVE (NEGATIVE); COLOR,URINE YELLOW; GLUCOSE,URINE NEGATIVE (NEGATIVE); KETONES,URINE 40 mg/dL (NEGATIVE); LEUKOCYTE ESTERASE,URINE NEGATIVE (NEGATIVE); NITRITE,URINE NEGATIVE (NEGATIVE); OCCULT BLOOD,URINE NEGATIVE (NEGATIVE); PH,URINE 6.5 (5.0-8.0); PROTEIN,URINE NEGATIVE (NEGATIVE); UROBILINOGEN,URINE 0.2 EU/dL (<2.0)
[2023-06-19 19:23] VITALS: BP 108/65; PULSE 102
== END 2023-06-19 13:31 | disposition home or self-care (01) ==
LOC: MW.ED 09:18
DX: J18.9 Pneumonia, unspecified organism (principal); Z90.49 Acquired absence of other specified parts of digestive tract; Z79.899 Other long term (current) drug therapy; Z91.018 Allergy to other foods; Z91.040 Latex allergy status; Z88.6 Allergy status to analgesic agent; Z88.8 Allergy status to other drugs, medicaments and biological substances; Z88.5 Allergy status to narcotic agent
CPT/HCPCS: 36415; 71275; 80053; 81003; 83605; 83690; 84484; 84703; 85025; 85379; 86140; 87040; 93005; 96361; 96365; 96375; 99285; J0696; J2405; J3490; J7030; Q9967; 93010; 99291

== ENCOUNTER 2023-06-28 12:43 | Emergency (ER) | payer OTHER, MEDICAID ==
[2023-06-28] MEDS ORDERED: Famotidine 20 MG/2 ML SDV IVPUSH STA (12:46)
[2023-06-28] MEDS ORDERED: Sodium Chloride 0.9% 1,000 ML IV STA ×2 (12:46→14:21)
[2023-06-28] MEDS ORDERED: EPINEPHrine 1 MG/1 ML Amp IM STA (14:21)
[2023-06-28 16:45] VITALS: BP 110/63; PULSE 77
== END 2023-06-28 17:08 | disposition home or self-care (01) ==
LOC: MW.ED 12:43
DX: T78.2XXA Anaphylactic shock, unspecified, initial encounter (principal); E03.9 Hypothyroidism, unspecified; Z88.5 Allergy status to narcotic agent; Z91.018 Allergy to other foods; Z91.040 Latex allergy status; Z91.048 Other nonmedicinal substance allergy status; Z88.8 Allergy status to other drugs, medicaments and biological substances; Z79.899 Other long term (current) drug therapy; Z90.49 Acquired absence of other specified parts of digestive tract
CPT/HCPCS: 96361; 96372; 96374; 99284; J0171; J3490; J7030

== ENCOUNTER 2023-07-27 17:27 | Emergency (ER) | payer OTHER, MEDICAID ==
[2023-07-27] MEDS: diphenhydrAMINE 50 MG/ML SDV IVPUSH ONE (20:20)
[2023-07-27] MEDS: Ketorolac 30 MG/ML SDV IVPUSH ONE (20:21)
[2023-07-27] MEDS: Sodium Chloride 0.9% 2.5 ML Syringe FLUSH PRN (20:21)
[2023-07-27] MEDS: Sodium Chloride 0.9% 10 ML Syringe FLUSH PRN (20:21)
[2023-07-27] MEDS: Metoclopramide 10 MG/2 ML SDV IVPUSH ONE (20:21)
[2023-07-27 21:11] VITALS: BP 97/57; PULSE 75
== END 2023-07-27 21:08 | disposition home or self-care (01) ==
LOC: MW.ED 17:27
DX: G43.909 Migraine, unspecified, not intractable, without status migrainosus (principal); E03.9 Hypothyroidism, unspecified; Z79.899 Other long term (current) drug therapy; Z88.5 Allergy status to narcotic agent; Z88.8 Allergy status to other drugs, medicaments and biological substances; Z91.018 Allergy to other foods; Z91.040 Latex allergy status; Z91.048 Other nonmedicinal substance allergy status
CPT/HCPCS: 96374; 96375; 99283; J1200; J1885; J2765; J3490

== ENCOUNTER 2023-08-08 09:30 | Emergency (ER) | payer OTHER, MEDICAID ==
[2023-08-08 10:09] VITALS: BP 109/51; PULSE 78
[2023-08-08] MEDS: Lidocaine 1% 5 ML VIAL INJECT ONE (11:23)
== END 2023-08-08 12:30 | disposition home or self-care (01) ==
LOC: MW.ED 09:30
DX: S61.303A Unspecified open wound of left middle finger with damage to nail, initial encounter (principal); E03.9 Hypothyroidism, unspecified; Z91.048 Other nonmedicinal substance allergy status; Z91.040 Latex allergy status; Z91.018 Allergy to other foods; Z88.8 Allergy status to other drugs, medicaments and biological substances; Z79.899 Other long term (current) drug therapy; Z90.49 Acquired absence of other specified parts of digestive tract; W23.0XXA Caught, crushed, jammed, or pinched between moving objects, initial encounter
CPT/HCPCS: 11750; 73130-26-RT; 73130-RT; 99282; 99283-25; J3490

== ENCOUNTER 2023-08-24 16:11 | Emergency (ER) | payer OTHER, MEDICAID ==
[2023-08-24] MEDS: Sodium Chloride 0.9% 1,000 ML IV ONE (16:27)
[2023-08-24] MEDS: Famotidine 20 MG/2 ML SDV IVPUSH ONE (16:40)
[2023-08-24 17:55] VITALS: BP 108/65; PULSE 91
== END 2023-08-24 17:53 | disposition home or self-care (01) ==
LOC: MW.ED 16:11
DX: T78.40XA Allergy, unspecified, initial encounter (principal); E03.9 Hypothyroidism, unspecified; Z88.5 Allergy status to narcotic agent; Z88.8 Allergy status to other drugs, medicaments and biological substances; Z91.040 Latex allergy status; Z91.018 Allergy to other foods; Z91.048 Other nonmedicinal substance allergy status; Z79.899 Other long term (current) drug therapy; Z90.49 Acquired absence of other specified parts of digestive tract; Z75.8 Other problems related to medical facilities and other health care
CPT/HCPCS: 96361; 96374; 99284; J3490; J7030

== ENCOUNTER 2023-12-01 21:45 | Emergency (ER) | payer MEDICAID, OTHER ==
[2023-12-01] MEDS: Sodium Chloride 0.9% 10 ML Syringe FLUSH PRN (22:19)
[2023-12-01] MEDS: Sodium Chloride 0.9% 1,000 ML IV ONE (22:19)
[2023-12-01] MEDS: Sodium Chloride 0.9% 2.5 ML Syringe FLUSH PRN (22:19)
[2023-12-01 22:30] LABS: BASOPHILS ABSOLUTE AUTO 0.06 K/uL (0.00-0.20); BASOPHILS PERCENT AUTO 0.8 % (0.0-1.0); EOSINOPHILS PERCENT AUTO 2.5 % (0.0-6.0); HEMATOCRIT 32.5 % (37.0-47.0); IMMATURE GRAN ABSOLUTE AUTO 0.01 K/uL (0.00-0.05); IMMATURE GRAN PERCENT AUTO 0.1 % (0.0-0.4); LYMPHOCYTES ABSOLUTE AUTO 2.03 K/uL (1.00-4.80); LYMPHOCYTES PERCENT AUTO 25.7 % (24.0-44.0); MEAN CORPUSCULAR HEMOGLOBIN 25.3 pg (28.0-32.0); MEAN CORPUSCULAR HGB CONC 33.8 g/dL (32.0-36.0); MEAN CORPUSCULAR VOLUME 74.9 fL (83.0-99.0); MEAN PLATELET VOLUME 10.7 fL (9.4-12.3); MONOCYTES ABSOLUTE AUTO 0.79 K/uL (0.00-0.80); NEUTROPHILS PERCENT AUTO 60.9 % (41.0-71.0); PLATELET COUNT,PLT 299 K/uL (150-400); RED BLOOD CELL COUNT 4.34 M/uL (4.10-5.30); WHITE BLOOD CELL COUNT,WBC 7.89 K/uL (3.9-11.3)
[2023-12-01 22:57] LABS: A/G RATIO 1.1 (0.9-1.6); ALBUMIN 4.1 g/dL (3.4-5.0); BILIRUBIN TOTAL 0.4 mg/dL (0.2-1.0); CALCIUM 8.6 mg/dL (8.5-10.1); CARBON DIOXIDE,CO2 24.9 mmol/L (21.0-32.0); CREATININE 0.9 mg/dL (0.6-1.0); EST CRCL DRUG DOSING (CG) 72.29 mL/min; POTASSIUM,K 3.3 mmol/L (3.5-5.1); PROTEIN TOTAL,TP 7.7 g/dL (6.4-8.2)
[2023-12-01 23:51] VITALS: BP 108/67; PULSE 78
== END 2023-12-01 23:19 | disposition home or self-care (01) ==
LOC: MW.ED 21:45
DX: R55 Syncope and collapse (principal); E03.9 Hypothyroidism, unspecified; Z90.49 Acquired absence of other specified parts of digestive tract; Z79.899 Other long term (current) drug therapy; Z91.040 Latex allergy status; Z88.5 Allergy status to narcotic agent; Z88.8 Allergy status to other drugs, medicaments and biological substances; Z91.018 Allergy to other foods
CPT/HCPCS: 36415; 71045; 80053; 84484; 84703; 85025; 96360; 99284; J3490; J7030; 93005

== ENCOUNTER 2023-12-09 21:28 | Emergency (ER) | payer MEDICAID ==
[2023-12-09 22:57] VITALS: PULSE 80
[2023-12-09 23:36] VITALS: BP 108/71
== END 2023-12-09 23:50 | disposition home or self-care (01) ==
LOC: MW.ED 21:28
DX: T78.3XXA Angioneurotic edema, initial encounter (principal); E03.9 Hypothyroidism, unspecified; Z91.048 Other nonmedicinal substance allergy status; Z91.040 Latex allergy status; Z88.5 Allergy status to narcotic agent; Z91.018 Allergy to other foods; Z88.8 Allergy status to other drugs, medicaments and biological substances; Z79.899 Other long term (current) drug therapy; Z79.890 Hormone replacement therapy; Z90.49 Acquired absence of other specified parts of digestive tract
CPT/HCPCS: 99283; 99285

== ENCOUNTER 2023-12-19 22:27 | Emergency (ER) | payer MEDICAID, OTHER ==
[2023-12-19] MEDS: diphenhydrAMINE 50 MG/ML SDV IVPUSH ONE (22:51)
[2023-12-19] MEDS: Famotidine 20 MG/2 ML SDV IVPUSH ONE (22:51)
[2023-12-20 01:10] VITALS: BP 123/82; PULSE 87
== END 2023-12-20 01:08 | disposition home or self-care (01) ==
LOC: MW.ED 22:27
DX: T78.1XXA Other adverse food reactions, not elsewhere classified, initial encounter (principal); E03.9 Hypothyroidism, unspecified; Z86.16 Personal history of COVID-19; Z90.49 Acquired absence of other specified parts of digestive tract; Z79.899 Other long term (current) drug therapy; Z91.048 Other nonmedicinal substance allergy status; Z91.018 Allergy to other foods; Z88.5 Allergy status to narcotic agent; Z88.8 Allergy status to other drugs, medicaments and biological substances; Z91.040 Latex allergy status; Z75.8 Other problems related to medical facilities and other health care
CPT/HCPCS: 96374; 96375; 99284; J1200; J3490

== ENCOUNTER 2024-01-02 18:58 | Emergency (ER) | payer MEDICAID, OTHER ==
[2024-01-02 19:30] LABS: BASOPHILS ABSOLUTE AUTO 0.06 K/uL (0.00-0.20); BASOPHILS PERCENT AUTO 0.7 % (0.0-1.0); EOSINOPHILS ABSOLUTE AUTO 0.09 K/uL (0.00-0.45); HEMATOCRIT 34.4 % (37.0-47.0); HEMOGLOBIN 11.8 g/dL (12.0-16.0); IMMATURE GRAN ABSOLUTE AUTO 0.03 K/uL (0.00-0.05); IMMATURE GRAN PERCENT AUTO 0.3 % (0.0-0.4); LYMPHOCYTES ABSOLUTE AUTO 1.83 K/uL (1.00-4.80); LYMPHOCYTES PERCENT AUTO 20.1 % (24.0-44.0); MEAN CORPUSCULAR HEMOGLOBIN 27.1 pg (28.0-32.0); MEAN CORPUSCULAR HGB CONC 34.3 g/dL (32.0-36.0); MEAN CORPUSCULAR VOLUME 78.9 fL (83.0-99.0); MEAN PLATELET VOLUME 9.9 fL (9.4-12.3); MONOCYTES ABSOLUTE AUTO 0.64 K/uL (0.00-0.80); NEUTROPHILS ABSOLUTE AUTO 6.47 K/uL (1.80-7.70); NEUTROPHILS PERCENT AUTO 70.9 % (41.0-71.0); PLATELET COUNT,PLT 288 K/uL (150-400); RED BLOOD CELL COUNT 4.36 M/uL (4.10-5.30); WHITE BLOOD CELL COUNT,WBC 9.12 K/uL (3.9-11.3)
[2024-01-02] MEDS: Ondansetron 4 MG/2 ML SDV IVPUSH ONE (19:44)
[2024-01-02 20:04] LABS: A/G RATIO 1.2 (0.9-1.6); ALBUMIN 4.3 g/dL (3.4-5.0); BILIRUBIN TOTAL 0.3 mg/dL (0.2-1.0); CALCIUM 9.3 mg/dL (8.5-10.1); CARBON DIOXIDE,CO2 22.6 mmol/L (21.0-32.0); EST CRCL DRUG DOSING (CG) 64.79 mL/min; POTASSIUM,K 3.2 mmol/L (3.5-5.1); PROTEIN TOTAL,TP 7.9 g/dL (6.4-8.2)
[2024-01-02 21:14] VITALS: BP 99/68; PULSE 88
== END 2024-01-02 21:46 | disposition home or self-care (01) ==
LOC: MW.ED 18:58
DX: R07.89 Other chest pain (principal); R00.2 Palpitations; E87.6 Hypokalemia; E03.9 Hypothyroidism, unspecified; Z86.16 Personal history of COVID-19; Z90.49 Acquired absence of other specified parts of digestive tract; Z79.899 Other long term (current) drug therapy; Z79.890 Hormone replacement therapy; Z91.040 Latex allergy status; Z91.018 Allergy to other foods; Z91.048 Other nonmedicinal substance allergy status; Z88.5 Allergy status to narcotic agent; Z88.8 Allergy status to other drugs, medicaments and biological substances
CPT/HCPCS: 36415; 71046; 80053; 83735; 84484; 85025; 93005; 96374; 99285; J2405; 93010; 99284

== ENCOUNTER 2024-01-07 20:29 | Emergency (ER) | payer BC, MEDICAID ==
[2024-01-07 21:36] LABS: BASOPHILS ABSOLUTE AUTO 0.06 K/uL (0.00-0.20); BASOPHILS PERCENT AUTO 0.7 % (0.0-1.0); EOSINOPHILS ABSOLUTE AUTO 0.21 K/uL (0.00-0.45); EOSINOPHILS PERCENT AUTO 2.3 % (0.0-6.0); HEMATOCRIT 34.5 % (37.0-47.0); HEMOGLOBIN 11.8 g/dL (12.0-16.0); IMMATURE GRAN ABSOLUTE AUTO 0.03 K/uL (0.00-0.05); IMMATURE GRAN PERCENT AUTO 0.3 % (0.0-0.4); LYMPHOCYTES ABSOLUTE AUTO 2.14 K/uL (1.00-4.80); LYMPHOCYTES PERCENT AUTO 23.5 % (24.0-44.0); MEAN CORPUSCULAR HEMOGLOBIN 27.3 pg (28.0-32.0); MEAN CORPUSCULAR HGB CONC 34.2 g/dL (32.0-36.0); MEAN CORPUSCULAR VOLUME 79.7 fL (83.0-99.0); MEAN PLATELET VOLUME 10.7 fL (9.4-12.3); MONOCYTES PERCENT AUTO 6.6 % (0.0-8.0); NEUTROPHILS ABSOLUTE AUTO 6.05 K/uL (1.80-7.70); NEUTROPHILS PERCENT AUTO 66.6 % (41.0-71.0); PLATELET COUNT,PLT 282 K/uL (150-400); RED BLOOD CELL COUNT 4.33 M/uL (4.10-5.30); WHITE BLOOD CELL COUNT,WBC 9.09 K/uL (3.9-11.3)
[2024-01-07 22:03] LABS: A/G RATIO 1.3 (0.9-1.6); ALBUMIN 4.3 g/dL (3.4-5.0); BILIRUBIN TOTAL 0.4 mg/dL (0.2-1.0); CALCIUM 9.1 mg/dL (8.5-10.1); CARBON DIOXIDE,CO2 25.5 mmol/L (21.0-32.0); CREATININE 0.9 mg/dL (0.6-1.0); EST CRCL DRUG DOSING (CG) 71.99 mL/min; POTASSIUM,K 3.7 mmol/L (3.5-5.1); PROTEIN TOTAL,TP 7.7 g/dL (6.4-8.2)
[2024-01-07] MEDS: Sodium Chloride 0.9% 1,000 ML IV STA (22:04)
[2024-01-07 22:13] LABS: TSH ULTRASENSITIVE 0.95 uIU/mL (0.36-3.74)
[2024-01-07 23:43] VITALS: BP 104/60; PULSE 86
== END 2024-01-07 23:48 | disposition home or self-care (01) ==
LOC: MW.ED 20:29
DX: R55 Syncope and collapse (principal); E03.9 Hypothyroidism, unspecified; Z75.8 Other problems related to medical facilities and other health care; Z91.048 Other nonmedicinal substance allergy status; Z88.5 Allergy status to narcotic agent; Z88.8 Allergy status to other drugs, medicaments and biological substances; Z79.890 Hormone replacement therapy; Z79.899 Other long term (current) drug therapy; Z90.49 Acquired absence of other specified parts of digestive tract
CPT/HCPCS: 36415; 70450; 71045; 80053; 83735; 84443; 84484; 84703; 85025; 93005; 96360; 99285; J7030; 93010; 99282